=== PATIENT | male | born 1970 | race Caucasian/White ===

== ENCOUNTER 2017-01-22 15:18 | Emergency (ER) | payer OTHER | END 2017-01-22 16:36 | disposition home or self-care (01) | DX: H92.01 Otalgia, right ear (principal); J06.9 Acute upper respiratory infection, unspecified; I10 Essential (primary) hypertension; E11.9 Type 2 diabetes mellitus without complications; Z79.84 Long term (current) use of oral hypoglycemic drugs; K21.9 Gastro-esophageal reflux disease without esophagitis; Z79.82 Long term (current) use of aspirin ==

== ENCOUNTER 2017-03-14 11:39 | Day surgery (SDC) | payer OTHER ==
[2017-03-14] MEDS ORDERED: LACTATED RINGERS 1,000 ML IV ONE (12:18)
[2017-03-14] MEDS ORDERED: fentaNYL 100 MCG/2 ML VIAL IVP ONE (13:50)
[2017-03-14] MEDS ORDERED: MIDAZOLAM 2 MG/2 ML VIAL IVP ONE (13:50)
== END 2017-03-14 11:40 | disposition home or self-care (01) ==
PROC: 0DB68ZX Excision of Stomach, Via Natural or Artificial Opening Endoscopic, Diagnostic (ICD-10-PCS; principal; 2017-03-14 13:00)
DX: K21.9 Gastro-esophageal reflux disease without esophagitis (principal); K44.9 Diaphragmatic hernia without obstruction or gangrene; K29.70 Gastritis, unspecified, without bleeding; E11.9 Type 2 diabetes mellitus without complications; I10 Essential (primary) hypertension; E78.00 Pure hypercholesterolemia, unspecified; G47.30 Sleep apnea, unspecified; Z79.82 Long term (current) use of aspirin; Z79.84 Long term (current) use of oral hypoglycemic drugs
CPT/HCPCS: 43239; J7120

== ENCOUNTER 2017-05-12 15:58 | Emergency (ER) | payer OTHER ==
[2017-05-12] MEDS ORDERED: SODIUM CHLORIDE 0.9% 1,000 ML IV ONE (16:08)
[2017-05-12] MEDS ORDERED: ONDANSETRON 4 MG/2 ML VIAL IVP STA (16:08)
[2017-05-12] MEDS ORDERED: LOPERAMIDE 2 MG CAPSULE PO STA (16:08)
--- NOTE | 2017-05-12 16:11 | ED Physician Documentation ---
History of Present Illness - Stated complaint Stated Complaint: LIGHTHEADEDNESS,VOMITING - Chief complaint Chief Complaint: General - History obtained from History obtained from: Patient - History of Present Illness Timing: Yesterday (47-year-old gentleman with type 2 diabetes and hypertension developed an illness yesterday marked by sore throat and some sinus drainage but last night with vomiting and diarrhea without abdominal pain or fever. His was recently ill with a similar syndrome. There was no recent international travel, no rash. He is urinating a normal amount, but feels dizzy today.) Review of Systems Constitutional: denies: Fever, Chills, Fatigue Nose: reports: Rhinorrhea / runny nose Throat: reports: Sore throat GI: reports: Nausea, Vomiting, Diarrhea. denies: Abdominal Pain : denies: Dysuria, Frequency PD PAST MEDICAL HISTORY - Past Medical History Cardiovascular: Hypertension Respiratory: Sleep apnea, CPAP use Endocrine/Autoimmune: None, Type 2 diabetes GI: GERD : None HEENT: None Psych: None Musculoskeletal: Gout Derm: None - Past Surgical History Past Surgical History: Yes Ortho: ACL reconstruction - Present Medications Home Medications: Ambulatory Orders Medication Instructions Recorded Confirmed Lisinopril/Hydrochlorothiazide 1 mg PO DAILY 06/06/15 05/12/17 [Lisinopril-Hctz 20-25 mg Tab] Metformin HCl 1,000 mg PO DAILY 06/06/15 05/12/17 [place]-3 Fatty Acids [Fish Oil] 300 mg PO DAILY 06/06/15 05/12/17 Probenecid 500 mg PO DAILY 06/06/15 05/12/17 Sitagliptin Phosphate [Januvia] 50 mg PO DAILY 06/06/15 05/12/17 Esomeprazole [NexIUM] 40 mg PO DAILY 08/26/16 05/12/17 amLODIPine [Norvasc] 10 mg PO DAILY 08/26/16 05/12/17 Aspirin [Aspir-Low] 81 mg PO DAILY 01/22/17 05/12/17 Guaifenesin/Pseudoephedrne HCl 1 each PO BID PRN #20 tab.er.12h 05/12/17 [Mucinex D ER 600-60 mg Tablet] Loperamide [Imodium] 2 mg PO QID PRN #10 capsule 05/12/17 Ondansetron HCl [Zofran] 4 mg PO Q6H PRN #10 tablet 05/12/17 - Allergies Allergies/Adverse Reactions: Allergies Allergy/AdvReac Type Severity Reaction Status Date / Time No Known Drug Allergies Allergy Verified 02/04/16 15:09 - Social History Does the pt smoke?: No Smoking Status: Never smoker Does the pt drink ETOH?: No Does the pt have substance abuse?: No - Immunizations Immunizations are current?: Yes PD ED PE NORMAL - Vitals Vital signs reviewed: Yes - General General: Alert and oriented X 3, No acute distress - HEENT HEENT: Ears normal, Pharynx benign - Cardiac Cardiac: RRR, No murmur - Respiratory Respiratory: No respiratory distress, Clear bilaterally - Abdomen Abdomen: Normal bowel sounds, Soft, Non tender - Neuro Neuro: Alert and oriented X 3, Normal speech - Psych Psych: Normal mood, Normal affect Results - Vitals Vitals: Vital Signs - 24 hr 05/12/17 16:02 Temperature 35.7 C L Heart Rate 80 Respiratory 16 Rate Blood Pressure 131/84 H O2 Saturation 97 Oxygen O2 Source Room air - Labs Labs: Laboratory Tests 05/12/17 16:15 Sodium 137 Potassium 3.5 Chloride 98 L Carbon Dioxide 31 Anion Gap 8.0 BUN 13 Creatinine 0.9 Estimated GFR (MDRD) 90 Glucose 170 H Calcium 9.2 Total Bilirubin 0.7 AST 27 ALT 36 Alkaline Phosphatase 79 Total Protein 7.9 Albumin 4.2 Globulin 3.7 Albumin/Globulin Ratio 1.1 Lipase 20 L PD MEDICAL DECISION MAKING - ED course ED course: 47-year-old gentleman withDiabetes and hypertension presents with what sounds like gastroenteritis associated with some URI symptoms. His workup is unremarkable and he has a benign abdominal examination both on arrival and on 4: 47 PM with Improvement in his symptoms after Zofran and IV fluids. Departure - Departure Disposition: 01 Home, Self Care Clinical Impression: Gastroenteritis Condition: Good Record reviewed to determine appropriate education?: Yes Instructions: ED Gastroenteritis Viral Prescriptions: Loperamide [Imodium] 2 mg PO QID PRN #10 capsule PRN Reason: Diarrhea Guaifenesin/Pseudoephedrne HCl [Mucinex D ER 600-60 mg Tablet] 1 each PO BID PRN #20 tab.er.12h PRN Reason: congestion Ondansetron HCl [Zofran] 4 mg PO Q6H PRN #10 tablet PRN Reason: Nausea / Vomiting Comments: Symptoms should be gone within the next 12-24 hours, at least the diarrhea and the nausea. Return if worse or if not better in that timeframe.
[2017-05-12] MEDS ORDERED: ONDANSETRON 4 MG/2 ML VIAL ONE (16:15)
[2017-05-12] MEDS ORDERED: LOPERAMIDE 2 MG CAPSULE PO ONE (16:15)
[2017-05-12 16:39] LABS: ALBUMIN/GLOBULIN RATIO 1.1 (1.0-2.2); BILIRUBIN,TOTAL 0.7 mg/dL (0.2-1.0); CALCIUM 9.2 mg/dL (8.5-10.3); CREATININE 0.9 mg/dL (0.6-1.2); POTASSIUM 3.5 mmol/L (3.5-5.0); TOTAL PROTEIN 7.9 g/dL (6.7-8.2)
[2017-05-12 16:57] VITALS: BP 129/80
== END 2017-05-12 16:57 | disposition home or self-care (01) ==
LOC: ED 15:58
DX: K52.9 Noninfective gastroenteritis and colitis, unspecified (principal); E11.9 Type 2 diabetes mellitus without complications; I10 Essential (primary) hypertension; K21.9 Gastro-esophageal reflux disease without esophagitis; G47.30 Sleep apnea, unspecified; Z79.84 Long term (current) use of oral hypoglycemic drugs; Z79.82 Long term (current) use of aspirin
CPT/HCPCS: 36415; 80053; 83690; 96374; 99283; 99284; A9270

== ENCOUNTER 2017-11-17 13:53 | Outpatient (CLI) | payer OTHER ==
--- NOTE | 2017-11-17 17:54 | MRI Report ---
EXAM: LEFT KNEE MRI WITHOUT CONTRAST EXAM DATE: 11/17/2017 02:45 PM. CLINICAL HISTORY: Left knee pain and locking for one year. Arthritis. Medial-sided pain worse. COMPARISON: None. TECHNIQUE: Multiplanar, multisequence T1-weighted and fluid-sensitive sequences of the knee without c ontrast. Other: None. FINDINGS: Bones: There is subchondral edema in the medial aspect of the medial femoral and tibial condyle. Ther e are medial and lateral compartment osteophytes. Articular Cartilage: There is moderate thinning of the medial compartment hyaline cartilage. There is mild thinning of the lateral and patellofemoral compartment cartilage. Medial Meniscus: There is a radial tear of the posterior of the horn medial meniscus with moderate me dial extrusion and degenerative tearing of the body. Lateral Meniscus: The lateral meniscus is intact. Cruciate Ligaments: The anterior and posterior cruciate ligaments are intact. Collateral Ligaments: The medial collateral and lateral collateral ligamentous structures are intact. Tendons: The quadriceps, patellar, semimembranosus, and popliteus tendons are unremarkable. Musculature: No edema or fatty atrophy. Other: There is a moderate-sized joint effusion. There is a moderate-sized popliteal cyst which has l eaked into the calf. No loose bodies. The medial and lateral retinacula are intact. The subcutaneous tissues and fat pads are unremarkable. IMPRESSION: 1. Radial tear of the posterior horn of the medial meniscus with extrusion and degenerative tearing o f the body. 2. Moderate medial and patellofemoral osteoarthritis. 3. Moderate-sized joint effusion and popliteal cyst which has leaked into the calf. [facility] MUSCULOSKELETAL RADIOLOGY SECTION Referring Provider Line: [phone] SITE ID: [id number]
== END 2017-11-17 13:54 | disposition home or self-care (01) ==
LOC: DI 13:53
PROVIDERS: ATTEND Family Medicine
DX: S83.242A Other tear of medial meniscus, current injury, left knee, initial encounter (principal); M17.12 Unilateral primary osteoarthritis, left knee; M66.0 Rupture of popliteal cyst; M25.462 Effusion, left knee

== ENCOUNTER 2018-11-08 23:20 | Emergency (ER) | payer OTHER ==
--- NOTE | 2018-11-09 01:27 | ED Physician Documentation ---
PD HPI SKIN - Stated complaint Stated Complaint: BILAT ANKLE PX - Chief complaint Chief Complaint: General - History obtained from History obtained from: Patient - History of Present Illness Timing - onset: How many weeks ago (3-4) Timing - duration: Weeks (3-4) Timing - details: Gradual onset, Waxing and waning (He will improve while on steroids but then worsened again once off of them.) Location: RLE, LLE (dorsum ankle/foot) Quality / character: Painful, Discolored (red), Swelling Associated symptoms: Myalgias. No: Fever, N/V/D Similar symptoms before: Diagnosis (gout) Recently seen: Clinic, Emergency Dept Review of Systems Constitutional: denies: Fever, Chills, Myalgias Cardiac: denies: Chest pain / pressure Respiratory: denies: Dyspnea, Cough GI: denies: Nausea, Vomiting, Diarrhea Neurologic: reports: Numbness. denies: Generalized weakness, Focal weakness PD PAST MEDICAL HISTORY - Past Medical History Past Medical History: Yes Cardiovascular: Hypertension Respiratory: Sleep apnea, CPAP use Endocrine/Autoimmune: None, Type 2 diabetes GI: GERD : None HEENT: None Psych: None Musculoskeletal: Gout Derm: None - Past Surgical History Past Surgical History: Yes Ortho: ACL reconstruction - Present Medications Home Medications: Ambulatory Orders Medication Instructions Recorded Confirmed Lisinopril/Hydrochlorothiazide 1 mg PO DAILY 06/06/15 05/12/17 [Lisinopril-Hctz 20-25 mg Tab] Metformin HCl 1,000 mg PO DAILY 06/06/15 05/12/17 Probenecid 500 mg PO DAILY 06/06/15 05/12/17 Sitagliptin Phosphate [Januvia] 50 mg PO DAILY 06/06/15 05/12/17 amLODIPine [Norvasc] 10 mg PO DAILY 08/26/16 05/12/17 Atorvastatin [Lipitor] 0 mg 11/09/18 Colchicine 0.6 mg PO 11/09/18 Colchicine 0.6 mg PO TID #30 tablet 11/09/18 Dexamethasone [Decadron] 4 mg PO DAILY #10 tablet 11/09/18 Fexofenadine HCl 180 mg PO 11/09/18 Indomethacin 25 mg PO BID #30 capsule 11/09/18 Indomethacin [Indocin] 25 mg PO 11/09/18 Losartan [Cozaar] 50 mg PO DAILY 11/09/18 11/09/18 Pantoprazole [Protonix] 40 mg PO 11/09/18 Tramadol HCl 50 mg PO Q6H PRN #15 tablet 11/09/18 - Allergies Allergies/Adverse Reactions: Allergies Allergy/AdvReac Type Severity Reaction Status Date / Time morphine AdvReac Itching Verified 11/08/18 23:47 - Social History Does the pt smoke?: No Smoking Status: Never smoker Does the pt drink ETOH?: No Does the pt have substance abuse?: No - Immunizations Immunizations are current?: Yes - POLST Patient has POLST: No PD ED PE NORMAL - Vitals Vital signs reviewed: Yes - General General: Alert and oriented X 3, No acute distress, Well developed/nourished - Derm Derm: Normal color, Warm and dry - Extremities Extremities: Other (both ankles/feet with redness, tenderness, swelling dorsolaterally. Right great toe MTP alsow ith similar. ) - Neuro Neuro: Alert and oriented X 3, No motor deficit, Normal speech Results - Vitals Vitals: Oxygen O2 Source Room air PD MEDICAL DECISION MAKING - ED course Complexity details: reviewed old records, considered differential (He has had prolonged episode of gout in both ankles that will improve while on the steroids but then comes back right away. He is continuing his probenecid even during the exacerbation and so that may be prolonging the symptoms. He also has a very mild irritative rash on both lower legs and that is also a listed side effect of the probenecid so I would have him hold this for now until he is fully cleared of his flareup and is well done of the gout episode for a week or 2 and then he could resume the prophylactic medicines. I would suggest he go back to allopurinol and see her probenecid if he is potentially getting a rash from it.), d/w patient Departure - Departure Disposition: 01 Home, Self Care Clinical Impression: Exacerbation of gout Ankle pain Qualifiers: Chronicity: acute Laterality: bilateral Qualified Code(s): M25.571 - Pain in right ankle and joints of right foot Condition: Stable Record reviewed to determine appropriate education?: Yes Instructions: ED Arthritis Gout Follow-Up: EFREN WILLIAM [Primary Care Provider] - Prescriptions: Colchicine 0.6 mg PO TID #30 tablet Dexamethasone [Decadron] 4 mg PO DAILY #10 tablet Indomethacin 25 mg PO BID #30 capsule Tramadol HCl 50 mg PO Q6H PRN #15 tablet PRN Reason: Pain Comments: Continue continue indomethacin twice daily. Also continue the colchicine 2-3 times daily. Dexamethasone daily for inflammation (steroid medicine). Add Tylenol or tramadol if needed for pains. Follow-up with your primary care. I would suggest stopping the probenecid until you are fully out of the gout episode as it may potentially be prolonging the symptoms. It can cause rash or irritated skin at times too, so might be the rash you are having on the legs. Discharge Date/Time: 11/09/18 02:25
[2018-11-09] MEDS ORDERED: NAPROXEN 250 MG TABLET PO STA (01:52)
[2018-11-09] MEDS ORDERED: HYDROcod/ACET 5/325 Prepack 4 PO STA (01:52)
[2018-11-09] MEDS ORDERED: DEXAMETHASONE 10 MG/ML VIAL PO STA (01:52)
[2018-11-09] MEDS ORDERED: CHERRY SYRUP 10 ML UDC PO ONE (01:58)
[2018-11-09 02:13] VITALS: BP 152/100
== END 2018-11-09 02:25 | disposition home or self-care (01) ==
LOC: ED 23:20
DX: M10.9 Gout, unspecified (principal); M25.571 Pain in right ankle and joints of right foot; M25.572 Pain in left ankle and joints of left foot; I10 Essential (primary) hypertension; E11.9 Type 2 diabetes mellitus without complications; Z79.84 Long term (current) use of oral hypoglycemic drugs
CPT/HCPCS: 99283; A9270

== ENCOUNTER 2019-03-02 17:03 | Emergency (ER) | payer OTHER ==
[2019-03-02 17:09] VITALS: BP 134/94
--- NOTE | 2019-03-02 17:22 | ED Physician Documentation ---
PD HPI URI - Stated complaint Stated Complaint: COUGH - Chief complaint Chief Complaint: Resp - History obtained from History obtained from: Patient - History of Present Illness Timing - onset: How many weeks ago (2) Timing duration: Weeks (2) Timing details: Gradual onset Pain level max: 3 Pain level now: 2 Associated symptoms: Fever, Chills Contributing factors: Sick contact. No: Immunocompromised, Unimmunized Improves by: Rest, MDI/nebulizer Worsened by: Activity, Breathing Recently seen: Clinic (for same, flonase and albuterol not helping. feels worse) Review of Systems Constitutional: denies: Fever, Chills GI: denies: Vomiting Skin: denies: Rash Musculoskeletal: denies: Neck pain, Back pain Neurologic: denies: Headache PD PAST MEDICAL HISTORY - Past Medical History Cardiovascular: Hypertension Respiratory: Sleep apnea, CPAP use Endocrine/Autoimmune: None, Type 2 diabetes GI: GERD : None HEENT: None Psych: None Musculoskeletal: Gout Derm: None - Past Surgical History Past Surgical History: Yes Ortho: ACL reconstruction - Present Medications Home Medications: Ambulatory Orders Medication Instructions Recorded Confirmed Lisinopril/Hydrochlorothiazide 1 mg PO DAILY 06/06/15 05/12/17 [Lisinopril-Hctz 20-25 mg Tab] Metformin HCl 1,000 mg PO DAILY 06/06/15 05/12/17 Probenecid 500 mg PO DAILY 06/06/15 05/12/17 Sitagliptin Phosphate [Januvia] 50 mg PO DAILY 06/06/15 05/12/17 amLODIPine [Norvasc] 10 mg PO DAILY 08/26/16 05/12/17 Atorvastatin [Lipitor] 0 mg 11/09/18 Colchicine 0.6 mg PO 11/09/18 Colchicine 0.6 mg PO TID #30 tablet 11/09/18 Dexamethasone [Decadron] 4 mg PO DAILY #10 tablet 11/09/18 Fexofenadine HCl 180 mg PO 11/09/18 Indomethacin 25 mg PO BID #30 capsule 11/09/18 Indomethacin [Indocin] 25 mg PO 11/09/18 Losartan [Cozaar] 50 mg PO DAILY 11/09/18 11/09/18 Pantoprazole [Protonix] 40 mg PO 11/09/18 Tramadol HCl 50 mg PO Q6H PRN #15 tablet 11/09/18 Cetirizine HCl/Pseudoephedrine 1 each PO BID PRN #30 tab.er.12h 03/02/19 [Zyrtec-D Tablet] Doxycycline Hyclate 100 mg PO BID #20 capsule 03/02/19 - Allergies Allergies/Adverse Reactions: Allergies Allergy/AdvReac Type Severity Reaction Status Date / Time morphine AdvReac Itching Verified 03/02/19 17:09 - Social History Does the pt smoke?: No Smoking Status: Never smoker Does the pt drink ETOH?: No Does the pt have substance abuse?: No - Immunizations Immunizations are current?: Yes - POLST Patient has POLST: No PD ED PE NORMAL - Vitals Vital signs reviewed: Yes - General General: Alert and oriented X 3, No acute distress - HEENT HEENT: Ears normal, Moist mucous membranes, Pharynx benign - Neck Neck: Supple, no meningeal sign - Cardiac Cardiac: RRR - Respiratory Respiratory: No respiratory distress, Other (Rhonchi left lower lobe that does not clear with coughing) - Abdomen Abdomen: Soft, Non tender, Non distended - Derm Derm: Warm and dry - Neuro Neuro: Alert and oriented X 3 Results - Vitals Vitals: Vital Signs - 24 hr 03/02/19 17:07 Temperature 36.4 C L Heart Rate 91 Respiratory 18 Rate Blood Pressure 134/94 H O2 Saturation 96 Oxygen O2 Source Room air PD MEDICAL DECISION MAKING - ED course Complexity details: considered differential, d/w patient ED course: 49-year-old male with what appears to be normal clinically. Will place on antibiotics. We will have him follow-up with his doctor for further care. Also placed on decongestants. He has albuterol at home. He does request a breathing treatment here. Patient counseled regarding signs and symptoms for which I believe and urgent re-evaluation would be necessary. Patient with good understanding of and agreement to plan and is comfortable going home at this time This document was made in part using voice recognition software. While efforts are made to proofread this document, sound alike and grammatical errors may occur. Departure - Departure Disposition: 01 Home, Self Care Clinical Impression: Pneumonia Qualifiers: Pneumonia type: due to unspecified organism Laterality: left Lung location: lower lobe of lung Qualified Code(s): J18.1 - Lobar pneumonia, unspecified organism Condition: Good Instructions: ED Pneumonia Adult Follow-Up: SONE,PETER [Primary Care Provider] - Within 1 week Prescriptions: Cetirizine HCl/Pseudoephedrine [Zyrtec-D Tablet] 1 each PO BID PRN #30 tab.er.12h PRN Reason: nasal congestion Doxycycline Hyclate 100 mg PO BID #20 capsule Comments: Use the medications as prescribed. Return if you worsen. Follow-up with your doctor for further care. Take all antibiotics until gone. Forms: Activity restrictions
[2019-03-02] MEDS ORDERED: ALBUTEROL NEB 2.5 MG/3 ML INH STA (17:27)
[2019-03-02] MEDS ORDERED: DOXYCYCLINE 100 MG TABLET PO STA (17:27)
[2019-03-02] MEDS ORDERED: BENZONATATE 100 MG CAPSULE PO STA (17:27)
== END 2019-03-02 17:52 | disposition home or self-care (01) ==
LOC: ED 17:03
DX: J18.1 Lobar pneumonia, unspecified organism (principal); E11.9 Type 2 diabetes mellitus without complications; I10 Essential (primary) hypertension
CPT/HCPCS: 94640; 99283; 99284; A9270

== ENCOUNTER 2019-03-05 13:46 | Emergency (ER) | payer OTHER ==
[2019-03-05] MEDS ORDERED: IPRATROPIUM/ALBUTEROL 3 ML NEB INH STA (14:12)
[2019-03-05] MEDS ORDERED: predniSONE 20 MG TABLET PO STA (14:13)
--- NOTE | 2019-03-05 14:16 | ED Physician Documentation ---
PD HPI URI - Stated complaint Stated Complaint: DIFFICULTY BREATHING/COUGH - Chief complaint Chief Complaint: Resp - History obtained from History obtained from: Patient, Family - History of Present Illness Timing - onset: How many days ago (Several) Pain level max: 3 Pain level now: 2 Associated symptoms: Fever, Nasal congestion, Rhinorrhea, Dry cough, Dyspnea Contributing factors: COPD / asthma Improves by: Rest, MDI/nebulizer Worsened by: Activity, Breathing Recently seen: Emergency Dept (3 days ago for same) - Additional information Additional information: Patient seen here recently with difficulty breathing, diagnosed with pneumonia. Placed on doxycycline. He states that it is getting difficult to breathe again. Is not currently on steroids. Review of Systems GI: denies: Vomiting Skin: denies: Rash Musculoskeletal: denies: Neck pain, Back pain Neurologic: denies: Headache PD PAST MEDICAL HISTORY - Past Medical History Cardiovascular: Hypertension Respiratory: Sleep apnea, CPAP use Endocrine/Autoimmune: None, Type 2 diabetes GI: GERD : None HEENT: None Psych: None Musculoskeletal: Gout Derm: None - Past Surgical History Past Surgical History: Yes Ortho: ACL reconstruction - Present Medications Home Medications: Ambulatory Orders Medication Instructions Recorded Confirmed Lisinopril/Hydrochlorothiazide 1 mg PO DAILY 06/06/15 05/12/17 [Lisinopril-Hctz 20-25 mg Tab] Metformin HCl 1,000 mg PO DAILY 06/06/15 05/12/17 Probenecid 500 mg PO DAILY 06/06/15 05/12/17 Sitagliptin Phosphate [Januvia] 50 mg PO DAILY 06/06/15 05/12/17 amLODIPine [Norvasc] 10 mg PO DAILY 08/26/16 05/12/17 Atorvastatin [Lipitor] 0 mg 11/09/18 Colchicine 0.6 mg PO 11/09/18 Colchicine 0.6 mg PO TID #30 tablet 11/09/18 Dexamethasone [Decadron] 4 mg PO DAILY #10 tablet 11/09/18 Fexofenadine HCl 180 mg PO 11/09/18 Indomethacin 25 mg PO BID #30 capsule 11/09/18 Indomethacin [Indocin] 25 mg PO 11/09/18 Losartan [Cozaar] 50 mg PO DAILY 11/09/18 11/09/18 Pantoprazole [Protonix] 40 mg PO 11/09/18 Tramadol HCl 50 mg PO Q6H PRN #15 tablet 11/09/18 Cetirizine HCl/Pseudoephedrine 1 each PO BID PRN #30 tab.er.12h 03/02/19 [Zyrtec-D Tablet] Doxycycline Hyclate 100 mg PO BID #20 capsule 03/02/19 Albuterol Sulf [Ventolin Hfa 1 - 2 puffs INH Q4HR PRN #1 inhaler 03/05/19 Inhaler] predniSONE [Prednisone] 40 mg PO DAILY #10 tablet 03/05/19 - Allergies Allergies/Adverse Reactions: Allergies Allergy/AdvReac Type Severity Reaction Status Date / Time morphine AdvReac Itching Verified 03/05/19 14:00 - Social History Does the pt smoke?: No Smoking Status: Never smoker Does the pt drink ETOH?: No Does the pt have substance abuse?: No - Immunizations Immunizations are current?: Yes - POLST Patient has POLST: No PD ED PE NORMAL - Vitals Vital signs reviewed: Yes - General General: Alert and oriented X 3, No acute distress, Well developed/nourished - HEENT HEENT: PERRL, Moist mucous membranes - Neck Neck: Supple, no meningeal sign - Cardiac Cardiac: RRR - Respiratory Respiratory: No respiratory distress, Other (Wheezing diminished breath sounds bilaterally) - Abdomen Abdomen: Soft, Non tender, Non distended - Derm Derm: Warm and dry - Extremities Extremities: No edema - Neuro Neuro: Alert and oriented X 3 - Psych Psych: Normal mood, Normal affect Results - Vitals Vitals: Vital Signs - 24 hr 03/05/19 03/05/19 03/05/19 13:57 14:28 15:06 Temperature 36.9 C 36.5 C Heart Rate 93 88 80 Respiratory 20 18 18 Rate Blood Pressure 140/95 H 134/103 H O2 Saturation 97 96 Oxygen O2 Source Room air PD MEDICAL DECISION MAKING - ED course Complexity details: reviewed old records, re-evaluated patient, considered differential, d/w patient ED course: Patient feels better after steroids and nebulizer treatment. No hypoxia or respiratory distress. Improved aeration throughout his lungs. Will prescribe steroids and an inhaler for home in addition to his antibiotics. Patient counseled regarding signs and symptoms for which I believe and urgent re- evaluation would be necessary. Patient with good understanding of and agreement to plan and is comfortable going home at this time This document was made in part using voice recognition software. While efforts are made to proofread this document, sound alike and grammatical errors may occur. Departure - Departure Disposition: 01 Home, Self Care Clinical Impression: Pneumonia Qualifiers: Pneumonia type: due to unspecified organism Laterality: unspecified laterality Lung location: unspecified part of lung Qualified Code(s): J18.9 - Pneumonia, unspecified organism Condition: Good Instructions: ED Pneumonia Adult Follow-Up: EFREN WILLIAM [Primary Care Provider] - Within 1 week Prescriptions: Albuterol Sulf [Ventolin Hfa Inhaler] 1 - 2 puffs INH Q4HR PRN #1 inhaler PRN Reason: Shortness Of Air/Wheezing predniSONE [Prednisone] 40 mg PO DAILY #10 tablet Comments: Continue the medications as previously prescribed. Return if you worsen. Forms: Activity restrictions Discharge Date/Time: 03/05/19 15:16
[2019-03-05 15:07] VITALS: BP 134/103
== END 2019-03-05 15:16 | disposition home or self-care (01) ==
LOC: ED 13:46
DX: J18.9 Pneumonia, unspecified organism (principal); I10 Essential (primary) hypertension; E11.9 Type 2 diabetes mellitus without complications; Z79.84 Long term (current) use of oral hypoglycemic drugs
CPT/HCPCS: 94640; 99283; 99284; J7512

== ENCOUNTER 2019-12-28 17:06 | Emergency (ER) | payer OTHER ==
[2019-12-28] MEDS ORDERED: IPRATROPIUM/ALBUTEROL 3 ML NEB INH STA (17:26)
[2019-12-28] MEDS ORDERED: PSEUDOEPHEDRINE 30 MG TABLET PO STA (17:26)
--- NOTE | 2019-12-28 17:28 | ED Physician Documentation ---
History of Present Illness - Stated complaint Stated Complaint: NAUSEA/CONGESTION - Chief complaint Chief Complaint: General - History obtained from History obtained from: Patient - History of Present Illness Timing: How many days ago (3) Pain level max: 0 Pain level now: 0 - Additonal information Additional information: 49-year-old male states that he has had nasal congestion, cough and chills for the past 3 days. Had pneumonia last year. Nothing makes it better or worse. He states he is getting on an airplane on Sunday and wants to be better by then. States he has mild tightness in his chest when he coughs. Used an inhaler last year, currently is not using 1. Several people at work are sick with same. Review of Systems Constitutional: reports: Chills Ears: denies: Ear pain Nose: reports: Rhinorrhea / runny nose, Congestion Throat: denies: Sore throat Cardiac: denies: Chest pain / pressure Respiratory: reports: Dyspnea, Cough GI: denies: Nausea, Vomiting Skin: denies: Rash Musculoskeletal: denies: Neck pain, Back pain Neurologic: denies: Headache PD PAST MEDICAL HISTORY - Past Medical History Cardiovascular: Hypertension Respiratory: Sleep apnea, CPAP use Endocrine/Autoimmune: None, Type 2 diabetes GI: GERD : None HEENT: None Psych: None Musculoskeletal: Gout Derm: None - Past Surgical History Past Surgical History: Yes Ortho: ACL reconstruction - Present Medications Home Medications: Ambulatory Orders Medication Instructions Recorded Confirmed Lisinopril/Hydrochlorothiazide 1 mg PO DAILY 06/06/15 05/12/17 [Lisinopril-Hctz 20-25 mg Tab] Metformin HCl 1,000 mg PO DAILY 06/06/15 05/12/17 Probenecid 500 mg PO DAILY 06/06/15 05/12/17 Sitagliptin Phosphate [Januvia] 50 mg PO DAILY 06/06/15 05/12/17 amLODIPine [Norvasc] 10 mg PO DAILY 08/26/16 05/12/17 Atorvastatin [Lipitor] 0 mg 11/09/18 Colchicine 0.6 mg PO 11/09/18 Colchicine 0.6 mg PO TID #30 tablet 11/09/18 Fexofenadine HCl 180 mg PO 11/09/18 Indomethacin 25 mg PO BID #30 capsule 11/09/18 Indomethacin [Indocin] 25 mg PO 11/09/18 Losartan [Cozaar] 50 mg PO DAILY 11/09/18 11/09/18 Pantoprazole [Protonix] 40 mg PO 11/09/18 Tramadol HCl 50 mg PO Q6H PRN #15 tablet 11/09/18 dexAMETHasone [Decadron] 4 mg PO DAILY #10 tablet 11/09/18 Cetirizine HCl/Pseudoephedrine 1 each PO BID PRN #30 tab.er.12h 03/02/19 [Zyrtec-D Tablet] Doxycycline Hyclate 100 mg PO BID #20 capsule 03/02/19 Albuterol Sulf [Ventolin Hfa 1 - 2 puffs INH Q4HR PRN #1 inhaler 03/05/19 Inhaler] predniSONE [Prednisone] 40 mg PO DAILY #10 tablet 03/05/19 Albuterol Sulfate [Proair Hfa 1 - 2 puffs INH Q4H PRN #1 inhaler 12/28/19 Inhaler] Cetirizine HCl/Pseudoephedrine 1 each PO BID PRN #30 tab.er.12h 12/28/19 [Zyrtec-D Tablet] predniSONE [Deltasone] 10 mg PO [id number] #42 tab 12/28/19 - Allergies Allergies/Adverse Reactions: Allergies Allergy/AdvReac Type Severity Reaction Status Date / Time morphine AdvReac Itching Verified 12/28/19 17:10 - Social History Does the pt smoke?: No Smoking Status: Never smoker Does the pt drink ETOH?: No Does the pt have substance abuse?: No - Immunizations Immunizations are current?: Yes - POLST Patient has POLST: No PD ED PE NORMAL - Vitals Vital signs reviewed: Yes - General General: Alert and oriented X 3, No acute distress, Well developed/nourished - HEENT HEENT: Ears normal, Moist mucous membranes, Pharynx benign, Other (No sinus tenderness) - Neck Neck: Supple, no meningeal sign, No adenopathy - Cardiac Cardiac: RRR - Respiratory Respiratory: No respiratory distress, Clear bilaterally (Diminished breath sounds bilaterally, but clear) - Abdomen Abdomen: Soft, Non tender, Non distended - Derm Derm: Warm and dry, No rash - Extremities Extremities: No edema - Neuro Neuro: Alert and oriented X 3 - Psych Psych: Normal mood, Normal affect Results - Vitals Vitals: Vital Signs - 24 hr 12/28/19 12/28/19 12/28/19 17:11 17:38 18:19 Temperature 36.4 C L Heart Rate 79 81 84 Respiratory 18 16 16 Rate Blood Pressure 152/92 H 145/98 H O2 Saturation 97 98 Oxygen O2 Source Room air - Rads (name of study) Chest x-ray Radiology: Prelim report reviewed, EMP read contemporaneously, See rad report (No acute cardiopulmonary disease) PD MEDICAL DECISION MAKING - ED course Complexity details: reviewed results, re-evaluated patient, considered differential, d/w patient ED course: 49-year-old male with what appears to be a viral upper respiratory infection. He feels better after nebulizer treatment. Will place on inhalers and steroids for home. Also placed on decongestants. No pneumonia on chest x-ray. No hypoxia. Patient counseled regarding signs and symptoms for which I believe and urgent re-evaluation would be necessary. Patient with good understanding of and agreement to plan and is comfortable going home at this time This document was made in part using voice recognition software. While efforts are made to proofread this document, sound alike and grammatical errors may occur. Departure - Departure Disposition: Home, Self Care Clinical Impression: Viral URI with cough Condition: Good Instructions: ED URI Viral Follow-Up: your,doctor in 1 week if not better [Other] Prescriptions: Albuterol Sulfate [Proair Hfa Inhaler] 1 - 2 puffs INH Q4H PRN #1 inhaler PRN Reason: Shortness Of Air/Wheezing Cetirizine HCl/Pseudoephedrine [Zyrtec-D Tablet] 1 each PO BID PRN #30 tab.er.12h PRN Reason: nasal congestion predniSONE [Deltasone] 10 mg PO [id number] #42 tab Comments: Use the medications as prescribed. Follow-up with your doctor for further care. There is no evidence of pneumonia on your chest x-ray today. The cough will likely last approximately 2 weeks. Discharge Date/Time: 12/28/19 18:19
[2019-12-28] MEDS ORDERED: predniSONE 20 MG TABLET PO STA (17:43)
--- NOTE | 2019-12-28 18:06 | XRAY Report ---
Reason: cough Procedure Date: 12/28/2019 Accession Number: [id number] / [id number] Procedure: XR - Chest 2 View X-Ray CPT Code: 02577 Final Report FULL RESULT: EXAM: CHEST RADIOGRAPHY EXAM DATE: 12/28/2019 05:36 PM. CLINICAL HISTORY: Cough, shortness of breath, and chest tightness. COMPARISON: None. TECHNIQUE: 2 views. FINDINGS: Lungs/Pleura: Normal volumes. No focal infiltrate or bronchial wall thickening. No evidence of edema. No pleural effusion or pneumothorax. Mediastinum: Normal cardiomediastinal contour. Other: Mild degenerative changes in the mid thoracic spine. IMPRESSION: No acute cardiopulmonary abnormality. RADIA
[2019-12-28 18:20] VITALS: BP 145/98
== END 2019-12-28 18:19 | disposition home or self-care (01) ==
LOC: ED 17:06
DX: J06.9 Acute upper respiratory infection, unspecified (principal); I10 Essential (primary) hypertension; E11.9 Type 2 diabetes mellitus without complications; Z79.84 Long term (current) use of oral hypoglycemic drugs
CPT/HCPCS: 71046; 94640; 99283; 99284; A9270; J7512

== ENCOUNTER 2020-03-09 08:47 | Emergency (ER) | payer OTHER ==
--- NOTE | 2020-03-09 09:17 | ED Physician Documentation ---
PD HPI NVD - Stated complaint Stated Complaint: FEVER/VOMITING - Chief complaint Chief Complaint: Fever - History obtained from History obtained from: Patient - History of Present Illness Timing - onset: Last night. No: Yesterday (felt okay yesterday, with onset of fever, aches, sore throat, nausea vomiting diarrhea overnight. Temp to 102 at home. Denies cough/dyspnea.) Timing - duration: Hours (10-12 hours) Timing - details: Abrupt onset Associated symptoms: Fever, Dizzy (lightheaded this morning), Loss of appetite. No: Abdominal pain, Chest pain, Hematemesis Contributing factors: No: Sick contact, Bad food, Travel Improved by: No: Vomiting Worsened by: Eating Similar symptoms before: Has not had sx before Recently seen: Not recently seen Review of Systems Constitutional: reports: Fever, Chills, Myalgias (abrupt overnight), Fatigue Nose: denies: Rhinorrhea / runny nose, Congestion Throat: reports: Sore throat Cardiac: denies: Chest pain / pressure Respiratory: denies: Dyspnea, Cough GI: reports: Nausea, Vomiting, Diarrhea. denies: Abdominal Swelling, Constipation, Hematemesis, Bloody / black stool : denies: Dysuria, Frequency Neurologic: reports: Generalized weakness. denies: Near syncope, Altered mental status, Headache PD PAST MEDICAL HISTORY - Past Medical History Cardiovascular: Hypertension Respiratory: Sleep apnea, CPAP use Endocrine/Autoimmune: None, Type 2 diabetes GI: GERD : None HEENT: None Psych: None Musculoskeletal: Gout Derm: None - Past Surgical History Past Surgical History: Yes Ortho: ACL reconstruction - Present Medications Home Medications: Ambulatory Orders Medication Instructions Recorded Confirmed Lisinopril/Hydrochlorothiazide 1 mg PO DAILY 06/06/15 05/12/17 [Lisinopril-Hctz 20-25 mg Tab] Metformin HCl 1,000 mg PO DAILY 06/06/15 05/12/17 Probenecid 500 mg PO DAILY 06/06/15 05/12/17 Sitagliptin Phosphate [Januvia] 50 mg PO DAILY 06/06/15 05/12/17 amLODIPine [Norvasc] 10 mg PO DAILY 08/26/16 05/12/17 Atorvastatin [Lipitor] 0 mg 11/09/18 Colchicine 0.6 mg PO 11/09/18 Colchicine 0.6 mg PO TID #30 tablet 11/09/18 Fexofenadine HCl 180 mg PO 11/09/18 Indomethacin 25 mg PO BID #30 capsule 11/09/18 Indomethacin [Indocin] 25 mg PO 11/09/18 Losartan [Cozaar] 50 mg PO DAILY 11/09/18 11/09/18 Pantoprazole [Protonix] 40 mg PO 11/09/18 Tramadol HCl 50 mg PO Q6H PRN #15 tablet 11/09/18 dexAMETHasone [Decadron] 4 mg PO DAILY #10 tablet 11/09/18 Cetirizine HCl/Pseudoephedrine 1 each PO BID PRN #30 tab.er.12h 03/02/19 [Zyrtec-D Tablet] Doxycycline Hyclate 100 mg PO BID #20 capsule 03/02/19 Albuterol Sulf [Ventolin Hfa 1 - 2 puffs INH Q4HR PRN #1 inhaler 03/05/19 Inhaler] predniSONE [Prednisone] 40 mg PO DAILY #10 tablet 03/05/19 Albuterol Sulfate [Proair Hfa 1 - 2 puffs INH Q4H PRN #1 inhaler 12/28/19 Inhaler] Cetirizine HCl/Pseudoephedrine 1 each PO BID PRN #30 tab.er.12h 12/28/19 [Zyrtec-D Tablet] predniSONE [Deltasone] 10 mg PO [id number] #42 tab 12/28/19 Calcium Carbonate 260 mg PO DAILY #10 tablet 03/09/20 Ondansetron Odt [Zofran] 4 mg TL Q6H PRN #15 tablet 03/09/20 Potassium Chloride 10 meq PO DAILY #5 tablet.er 03/09/20 - Allergies Allergies/Adverse Reactions: Allergies Allergy/AdvReac Type Severity Reaction Status Date / Time morphine AdvReac Itching Verified 03/09/20 08:52 - Social History Does the pt smoke?: No Smoking Status: Never smoker Does the pt drink ETOH?: No Does the pt have substance abuse?: No - Immunizations Immunizations are current?: Yes - POLST Patient has POLST: No PD ED PE NORMAL - Vitals Vital signs reviewed: Yes - General General: Alert and oriented X 3, No acute distress, Well developed/nourished - HEENT HEENT: Ears normal, Pharynx benign. No: Moist mucous membranes - Neck Neck: Supple, no meningeal sign, No adenopathy - Cardiac Cardiac: RRR, No murmur - Respiratory Respiratory: Clear bilaterally - Abdomen Abdomen: Normal bowel sounds, Soft, Non tender, Non distended, No organomegaly - Male Male : Deferred - Rectal Rectal: Deferred - Back Back: No CVA TTP - Derm Derm: Warm and dry. No: Normal color (mild pallor) - Extremities Extremities: No deformity, No tenderness to palpate, No edema, No calf tenderness / cord - Neuro Neuro: Alert and oriented X 3, No motor deficit, Normal speech Results - Vitals Vitals: Oxygen O2 Source Room air - Labs Labs: Laboratory Tests 03/09/20 03/09/20 03/09/20 09:20 09:20 09:50 WBC 7.4 RBC 4.83 Hgb 13.5 L Hct 40.0 L MCV 82.8 MCH 28.0 MCHC 33.8 RDW 14.1 Plt Count 202 MPV 11.1 Neut # (Auto) 5.9 Lymph # (Auto) 0.8 L [place] # (Auto) 0.6 Eos # (Auto) 0.0 Baso # (Auto) 0.0 Absolute Nucleated RBC 0.00 Nucleated RBC % 0.0 Sodium 138 Potassium 2.7 L Chloride 109 Carbon Dioxide 21 Anion Gap 8.0 BUN 11 Creatinine 0.6 Estimated GFR (MDRD) 143 Glucose 130 H Calcium 6.6 L Magnesium 1.1 L Total Bilirubin 0.4 AST 19 ALT 21 Alkaline Phosphatase 35 L Total Protein 5.4 L Albumin 3.1 L Globulin 2.3 Albumin/Globulin Ratio 1.3 Lipase 21 L Coronavirus (PCR) NEGATIVE PD MEDICAL DECISION MAKING - ED course Complexity details: re-evaluated patient (feeling improved with fluids and meds. abd exam still benign. Lytes are depleted, so given IV replacement on Ca, K. ), considered differential (GI symptoms with reported fever last night. No resp symptoms. Abd not tender on exam. CXR clear without signs of pneumonia. ), d/w patient Departure - Departure Disposition: 01 Home, Self Care Clinical Impression: Nausea and vomiting in adult, Viral gastroenteritis Condition: Stable Record reviewed to determine appropriate education?: Yes Instructions: ED Gastroenteritis Viral Follow-Up: SOLOMON Byrnes [Provider Group] Prescriptions: Calcium Carbonate 260 mg PO DAILY #10 tablet Ondansetron Odt [Zofran] 4 mg TL Q6H PRN #15 tablet PRN Reason: Nausea / Vomiting Potassium Chloride 10 meq PO DAILY #5 tablet.er Comments: Given the abrupt nausea and vomiting associated with fever and benign abdominal exam, I had inclined to think this is a viral gastroenteritis. Most likely this will just last for a day or 2 and then improve. Use ondansetron if needed for nausea. Rest at home today and tomorrow. Use Tylenol if needed for fevers. Your electrolytes had shown depletion particularly of the potassium and calcium but also a little bit of the magnesium presumably related to the vomiting. These should correct as your diet improves but I would suggest supplementing the potassium and calcium for several days to replenish them. This would be an unlikely presentation of coronavirus (COVID) so I do not think that is the cause of your illness. We did do a swab test for it and it should result in 1 or 2 days; we will call you with the results. Off work in the meantime. Forms: Activity restrictions Discharge Date/Time: 03/09/20 12:26
[2020-03-09 09:49] LABS: BASOPHILS % (AUTO) 0.4 %; EOSINOPHILS % (AUTO) 0.5 %; HGB - HEMOGLOBIN 13.5 g/dL (14.0-18.0); LYMPHOCYTES # (AUTO) 0.8 10^3/uL (1.5-3.5); LYMPHOCYTES % (AUTO) 10.7 %; MEAN CORPUSCULAR HGB CONC 33.8 g/dL (32.0-36.0); MEAN CORPUSCULAR VOLUME 82.8 fL (80.0-94.0); MEAN PLATELET VOLUME 11.1 fL (7.4-11.4); MONOCYTES # (AUTO) 0.6 10^3/uL (0.0-1.0); MONOCYTES % (AUTO) 8.5 %; NEUTROPHILS # (AUTO) 5.9 10^3/uL (1.5-6.6); NEUTROPHILS % (AUTO) 79.6 %; PLT - PLATELET COUNT 202 10^3/uL (130-450); RED BLOOD COUNT 4.83 10^6/uL (4.70-6.10); RED CELL DISTRIBUTION WIDTH 14.1 % (12.0-15.0); WHITE BLOOD COUNT 7.4 x10^3/uL (4.8-10.8)
[2020-03-09 10:05] LABS: ALBUMIN 3.1 g/dL (3.2-5.5); ALBUMIN/GLOBULIN RATIO 1.3 (1.0-2.2); BILIRUBIN,TOTAL 0.4 mg/dL (0.2-1.0); CALCIUM 6.6 mg/dL (8.5-10.3); CREATININE 0.6 mg/dL (0.6-1.2); MAGNESIUM 1.1 mg/dL (1.7-2.8); TOTAL PROTEIN 5.4 g/dL (6.7-8.2)
[2020-03-09] MEDS: ONDANSETRON 4 MG/2 ML VIAL IVP STA (10:05)
[2020-03-09] MEDS: SODIUM CHLORIDE 0.9% 1,000 ML IV ONE (10:05)
[2020-03-09] MEDS: FAMOTIDINE 20 MG/2 ML SYRINGE IVP STA (10:05)
[2020-03-09] MEDS: KETOROLAC 30 MG/ML VIAL IVP STA (10:05)
--- NOTE | 2020-03-09 10:21 | XRAY Report ---
Reason: chest pain Procedure Date: 03/09/2020 Accession Number: [id number] / [id number] Procedure: XR - Chest 1 View X-Ray CPT Code: 65920 Final Report FULL RESULT: EXAM: CHEST RADIOGRAPHY EXAM DATE: 03/09/2020 10:10 AM. CLINICAL HISTORY: Chest pain. COMPARISON: CHEST 2 VIEW 12/28/2019 5:31 PM. TECHNIQUE: 1 view. FINDINGS: Lungs/Pleura: No focal opacities evident. No pleural effusion. No pneumothorax. Mediastinum: Within exam limitations, the cardiomediastinal contour is normal. Other: None. IMPRESSION: No acute intrathoracic plain film abnormality. RADIA
[2020-03-09] MEDS: CALCIUM GLUCONATE 1,000 MG in SODIUM CHLORIDE 0.9% 50 ML IV STA (10:39)
[2020-03-09] MEDS: POTASSIUM CHLOR 10 MEQ/100 ML 10 MEQ/100 ML BAG IV ONE (10:39)
[2020-03-09 12:26] VITALS: BP 132/75
== END 2020-03-09 12:26 | disposition home or self-care (01) ==
LOC: ED 08:47
DX: A08.4 Viral intestinal infection, unspecified (principal); E87.6 Hypokalemia; E83.42 Hypomagnesemia; E83.51 Hypocalcemia; I10 Essential (primary) hypertension; E11.9 Type 2 diabetes mellitus without complications
CPT/HCPCS: 36415; 71045; 80053; 81599; 83690; 83735; 85025; 96361; 96365; 96368; 96375; 99284

== ENCOUNTER 2020-08-31 11:05 | Emergency (ER) | payer OTHER ==
[2020-08-31] MEDS ORDERED: KETOROLAC 60 MG/2 ML VIAL IM STA (12:03)
--- NOTE | 2020-08-31 12:07 | ED Physician Documentation ---
History of Present Illness - Stated complaint Stated Complaint: STIFF NECK/BACK PX - Chief complaint Chief Complaint: Back Pain - Additonal information Additional information: 50-year-old diabetic male presents to the emergency department for reported neck and back pain. He thinks that he may have thrown his back out but does not have any inciting events. About 4 days ago he did chop wood and yesterday he worked on his motorcycle but did not have any known falls or trauma. Yesterday in the a.m. he woke up and he felt like he had a pinched nerve in his back. Pain radiates to the left arm and he feels like his arm is been weak. He has had no fevers chest pain, shortness of breath. He has no previous history of cervical radiculopathy neck or arm pain. He does endorse poorly controlled blood pressures. Denies tobacco use. Moderate social drinker. Review of Systems Constitutional: denies: Fever, Chills, Fatigue, Weight Loss Ears: reports: Reviewed and negative Nose: reports: Reviewed and negative Throat: reports: Reviewed and negative Cardiac: reports: Reviewed and negative Respiratory: denies: Dyspnea, Cough, Hemoptysis, Wheezing GI: reports: Abdominal Pain, Abdominal Swelling : reports: Reviewed and negative Skin: reports: Reviewed and negative Musculoskeletal: reports: Neck pain, Back pain Neurologic: denies: Generalized weakness, Focal weakness, Numbness, Difficulty speaking, Near syncope, Syncope, Seizure, Headache, Head injury, LOC Psychiatric: reports: Reviewed and negative PD PAST MEDICAL HISTORY - Past Medical History Cardiovascular: Hypertension Respiratory: Sleep apnea, CPAP use Neuro: None Endocrine/Autoimmune: None, Type 2 diabetes GI: GERD : None HEENT: None Psych: None Musculoskeletal: Gout Derm: None - Past Surgical History Past Surgical History: Yes Ortho: ACL reconstruction - Present Medications Home Medications: Ambulatory Orders Medication Instructions Recorded Confirmed Lisinopril/Hydrochlorothiazide 1 mg PO DAILY 06/06/15 05/12/17 [Lisinopril-Hctz 20-25 mg Tab] Metformin HCl 1,000 mg PO DAILY 06/06/15 05/12/17 Probenecid 500 mg PO DAILY 06/06/15 05/12/17 Sitagliptin Phosphate [Januvia] 50 mg PO DAILY 06/06/15 05/12/17 amLODIPine [Norvasc] 10 mg PO DAILY 08/26/16 05/12/17 Atorvastatin [Lipitor] 0 mg 11/09/18 Colchicine 0.6 mg PO 11/09/18 Colchicine 0.6 mg PO TID #30 tablet 11/09/18 Fexofenadine HCl 180 mg PO 11/09/18 Indomethacin 25 mg PO BID #30 capsule 11/09/18 Indomethacin [Indocin] 25 mg PO 11/09/18 Losartan [Cozaar] 50 mg PO DAILY 11/09/18 11/09/18 Pantoprazole [Protonix] 40 mg PO 11/09/18 Tramadol HCl 50 mg PO Q6H PRN #15 tablet 11/09/18 dexAMETHasone [Decadron] 4 mg PO DAILY #10 tablet 11/09/18 Cetirizine HCl/Pseudoephedrine 1 each PO BID PRN #30 tab.er.12h 03/02/19 [Zyrtec-D Tablet] Doxycycline Hyclate 100 mg PO BID #20 capsule 03/02/19 Albuterol Sulf [Ventolin Hfa 1 - 2 puffs INH Q4HR PRN #1 inhaler 03/05/19 Inhaler] predniSONE [Prednisone] 40 mg PO DAILY #10 tablet 03/05/19 Albuterol Sulfate [Proair Hfa 1 - 2 puffs INH Q4H PRN #1 inhaler 12/28/19 Inhaler] Cetirizine HCl/Pseudoephedrine 1 each PO BID PRN #30 tab.er.12h 12/28/19 [Zyrtec-D Tablet] predniSONE [Deltasone] 10 mg PO [id number] #42 tab 12/28/19 Calcium Carbonate 260 mg PO DAILY #10 tablet 03/09/20 Ondansetron Odt [Zofran] 4 mg TL Q6H PRN #15 tablet 03/09/20 Potassium Chloride 10 meq PO DAILY #5 tablet.er 03/09/20 Ibuprofen [Motrin] 600 mg PO Q6H PRN #30 tab 08/31/20 Methocarbamol [Robaxin-750] 750 mg PO TID PRN #30 tablet 08/31/20 - Allergies Allergies/Adverse Reactions: Allergies Allergy/AdvReac Type Severity Reaction Status Date / Time morphine AdvReac Itching Verified 08/31/20 11:11 - Social History Does the pt smoke?: No Smoking Status: Never smoker Does the pt drink ETOH?: No Does the pt have substance abuse?: No - Immunizations Immunizations are current?: Yes - POLST Patient has POLST: No PD ED PE EXPANDED - General General: Alert, No acute distress, In Pain. No: Anxious - HEENT HEENT: Atraumatic, PERRL - Neck Neck: Bony TTP, Limited ROM (reduced forward felxion secodnary to pain; supple. non meningeal). No: Brudzinki's - Cardiac Cardiac: Regular Rate, Regular Rhythm, Radial strong equal, Pedal strong equal. No: Murmur Present - Respiratory Respiratory: Clear to ausultation damion. No: Distress, Labored - Abdomen Abdomen: No: Tender to palpation - Back Back: Other (lower cervical midline tenderness. + pain C6-& axial loading. Motor strength is 5 of 5 bilateral upper extremities.Sensation preserved to sharp light touch bilateral arms in the ulnar and radial distribution bilaterally) - Neuro Neuro: Alert and Oriented X 3, CNII-XII intact, Normal gait, Normal finger nose, Normal speech - GCS Eye Opening: Spontaneous Motor: Obeys Commands Verbal: Oriented Total: 15 Results - Vitals Vitals: Vital Signs - 24 hr 08/31/20 11:11 Temperature 36.7 C Heart Rate 74 Respiratory 18 Rate Blood Pressure 144/102 H O2 Saturation 97 Oxygen O2 Source Room air - EKG (time done) 1211 Rate: Rate (enter#) (63) Rhythm: NSR [place]: Anterior hemiblock (LAFB) Intervals: Normal [place] QRS: Normal Ischemia: Normal ST segments Compare to prior EKG: Old EKG unavailable Computer interpretation: Agree with computer - Labs Labs: Laboratory Tests 08/31/20 08/31/20 08/31/20 12:18 12:18 12:18 WBC 7.3 RBC 4.59 L Hgb 13.0 L Hct 38.2 L MCV 83.2 MCH 28.3 MCHC 34.0 RDW 13.9 Plt Count 242 MPV 10.1 Neut # (Auto) 3.9 Lymph # (Auto) 2.4 [place] # (Auto) 0.6 Eos # (Auto) 0.4 Baso # (Auto) 0.1 Absolute Nucleated RBC 0.00 Nucleated RBC % 0.0 Sodium 137 Potassium 3.7 Chloride 96 L Carbon Dioxide 30 Anion Gap 11.0 BUN 14 Creatinine 0.9 Estimated GFR (MDRD) 89 Glucose 169 H Calcium 8.7 Total Bilirubin 0.4 AST 27 ALT 37 Alkaline Phosphatase 77 Troponin I High Sens 3.1 Total Protein 7.6 Albumin 4.4 Globulin 3.2 Albumin/Globulin Ratio 1.4 Lipase 32 - Rads (name of study) CXR Radiology: Final report received cervical xr Radiology: Final report received PD MEDICAL DECISION MAKING - ED course Complexity details: reviewed results, re-evaluated patient, considered differential, d/w patient ED course: 50-year-old male presents the emergency department for evaluation what he thinks is a pinched nerve. He has pain that radiates from his lower cervical spine down the left arm causing pain with movement. On exam he does have increased pain with axial loading but muscle strength is preserved. Sensation is preserved at this time. Routine labs including troponin,EKG, chest x-ray and cervical spine films do not show any acute or worrisome abnormalities. This gentleman was given 60 mg of Toradol in the emergency department with mild to moderate relief of the pain. I will prescribe methocarbamol on discharge and recommend very close follow-up with his primary care provider. He likely would benefit from physical therapy as I believe that he presents with cervical radiculopathy. Emergent return precautions were discussed. Departure - Departure Disposition: 01 Home, Self Care Clinical Impression: Neck pain, Cervical radicular pain Condition: Stable Record reviewed to determine appropriate education?: Yes Instructions: ED Cervical Radiculopathy Prescriptions: Ibuprofen [Motrin] 600 mg PO Q6H PRN #30 tab PRN Reason: Pain Methocarbamol [Robaxin-750] 750 mg PO TID PRN #30 tablet PRN Reason: Spasms Comments: Geoff your labs, EKG chest x-ray and cervical spine films do not show anything worrisome today. However I am most suspicious that you have developed cervical radiculopathy or may be developing changes in your spine that are compressing one of the nerves running to your arm. Please take the methocarbamol as a muscle relaxer 2-3 times a day for discomfort. Be very careful it may be slightly sedating and you should not drive if taking this medication. I would also like you to take ibuprofen with food 2-3 times a day as an anti- inflammatory and for discomfort. Please schedule a close follow-up with your primary care provider. In the long- term you would likely benefit from physical therapy. If your symptoms are worsening your primary doctor may need to order outpatient imaging such as an MRI.
[2020-08-31 12:23] LABS: BASOPHILS # (AUTO) 0.1 10^3/uL (0.0-0.1); BASOPHILS % (AUTO) 0.7 %; EOSINOPHILS # (AUTO) 0.4 10^3/uL (0.0-0.7); EOSINOPHILS % (AUTO) 4.8 %; LYMPHOCYTES # (AUTO) 2.4 10^3/uL (1.5-3.5); LYMPHOCYTES % (AUTO) 33.4 %; MEAN CORPUSCULAR HEMOGLOBIN 28.3 pg (27.0-31.0); MEAN CORPUSCULAR VOLUME 83.2 fL (80.0-94.0); MEAN PLATELET VOLUME 10.1 fL (7.4-11.4); MONOCYTES # (AUTO) 0.6 10^3/uL (0.0-1.0); MONOCYTES % (AUTO) 7.9 %; NEUTROPHILS # (AUTO) 3.9 10^3/uL (1.5-6.6); NEUTROPHILS % (AUTO) 52.8 %; PLT - PLATELET COUNT 242 10^3/uL (130-450); RED BLOOD COUNT 4.59 10^6/uL (4.70-6.10); RED CELL DISTRIBUTION WIDTH 13.9 % (12.0-15.0); WHITE BLOOD COUNT 7.3 x10^3/uL (4.8-10.8)
[2020-08-31 12:35] LABS: ALBUMIN 4.4 g/dL (3.2-5.5); ALBUMIN/GLOBULIN RATIO 1.4 (1.0-2.2); BILIRUBIN,TOTAL 0.4 mg/dL (0.2-1.0); CALCIUM 8.7 mg/dL (8.5-10.3); CREATININE 0.9 mg/dL (0.6-1.2); TOTAL PROTEIN 7.6 g/dL (6.7-8.2)
--- NOTE | 2020-08-31 12:35 | XRAY Report ---
PROCEDURE: Chest 1 View X-Ray INDICATIONS: chest pain TECHNIQUE: One view of the chest was acquired. COMPARISON: 03/09/2020 FINDINGS: Surgical changes and devices: None. Lungs and pleura: No pleural effusions or pneumothorax. Lungs are clear. Mediastinum: Mediastinal contours appear normal. Heart size is normal. Bones and chest wall: No suspicious bony lesions. Overlying soft tissues appear unremarkable. IMPRESSION: No evidence acute pulmonary process. Reviewed by: Cedric Munoz MD on 08/31/2020 12:34 PM PDT Approved by: Cedric Munoz MD on 08/31/2020 12:34 PM PDT Station ID: [id number]
--- NOTE | 2020-08-31 13:01 | XRAY Report ---
PROCEDURE: Cervical Spine 2 View INDICATIONS: Back and neck pain TECHNIQUE: 4 view(s) of the cervical spine were acquired. COMPARISON: None. FINDINGS: Bones: Normal cervical spine vertebral body height and alignment. There is no evidence of fracture. N o suspicious lytic or blastic osseous lesion. No significant degenerative changes identified. Soft tissues: No prevertebral soft tissue swelling. IMPRESSION: Unremarkable cervical spine radiographs. Reviewed by: Nishant Morales MD on 08/31/2020 1:00 PM PDT Approved by: Nishant Morales MD on 08/31/2020 1:00 PM PDT Station ID: [id number]
[2020-08-31 13:32] VITALS: BP 153/113
== END 2020-08-31 13:38 | disposition home or self-care (01) ==
LOC: ED 11:05
DX: M54.12 Radiculopathy, cervical region (principal); I10 Essential (primary) hypertension; E11.9 Type 2 diabetes mellitus without complications; Z79.84 Long term (current) use of oral hypoglycemic drugs
CPT/HCPCS: 36415; 71045; 72040; 80053; 83690; 84484; 85025; 93005; 96372; 99284

== ENCOUNTER 2020-12-03 16:39 | Emergency (ER) | payer OTHER ==
--- NOTE | 2020-12-03 17:11 | XRAY Report ---
PROCEDURE: Chest 2 View X-Ray INDICATIONS: cough TECHNIQUE: 2 view(s) of the chest. COMPARISON: None. FINDINGS: Surgical changes and devices: None. Lungs and pleura: No pleural effusions or pneumothorax. Lungs are clear. Mediastinum: Mediastinal contours are normal. Heart size is normal. Bones and chest wall: No suspicious bony abnormalities. Soft tissues appear unremarkable. IMPRESSION: No evidence acute pulmonary process. Reviewed by: Cedric Munoz MD on 12/03/2020 5:10 PM [facility] Approved by: Cedric Munoz MD on 12/03/2020 5:10 PM [facility] Station ID: [id number]
[2020-12-03 18:34] VITALS: BP 157/115
[2020-12-03] MEDS ORDERED: ALBUTEROL 1 PUFF INH STA (18:34)
[2020-12-03] MEDS ORDERED: predniSONE 20 MG TABLET PO STA (18:34)
[2020-12-03] MEDS ORDERED: BENZONATATE 100 MG CAPSULE PO STA (18:35)
--- NOTE | 2020-12-03 19:05 | ED Physician Documentation ---
PD HPI URI - Stated complaint Stated Complaint: Cough - Chief complaint Chief Complaint: Resp - History obtained from History obtained from: Patient - History of Present Illness Timing - onset: How many weeks ago (1) Timing duration: Weeks (1) Timing details: Gradual onset Pain level max: 0 Pain level now: 0 Associated symptoms: Nasal congestion, Rhinorrhea, Dry cough, Dyspnea (wheezing). No: Fever, Chills Contributing factors: COPD / asthma Improves by: Rest Worsened by: Activity, Breathing Recently seen: Not recently seen - Additional information Additional information: not currently using an inhaler Review of Systems Constitutional: denies: Fever, Chills GI: denies: Vomiting, Diarrhea Skin: denies: Rash Musculoskeletal: denies: Neck pain, Back pain Neurologic: denies: Headache PD PAST MEDICAL HISTORY - Past Medical History Cardiovascular: Hypertension Respiratory: Sleep apnea, CPAP use Neuro: None Endocrine/Autoimmune: None, Type 2 diabetes GI: GERD : None HEENT: None Psych: None Musculoskeletal: Gout Derm: None - Past Surgical History Past Surgical History: Yes Ortho: ACL reconstruction - Present Medications Home Medications: Ambulatory Orders Medication Instructions Recorded Confirmed Metformin HCl 1,000 mg PO DAILY 06/06/15 05/12/17 Probenecid 500 mg PO DAILY 06/06/15 05/12/17 Atorvastatin [Lipitor] 0 mg 11/09/18 Colchicine 0.6 mg PO TID #30 tablet 11/09/18 Fexofenadine HCl 180 mg PO 11/09/18 Pantoprazole [Protonix] 40 mg PO 11/09/18 Cetirizine HCl/Pseudoephedrine 1 each PO BID PRN #30 tab.er.12h 12/28/19 [Zyrtec-D Tablet] Albuterol Sulfate [Proair Hfa 1 - 2 puffs INH Q4H PRN #1 inhaler 12/03/20 Inhaler] Benzonatate [Tessalon] 200 mg PO TID PRN #30 capsule 12/03/20 Lisinopril/Hydrochlorothiazide 12/03/20 [Zestoretic 10-12.5 mg Tablet] predniSONE [Deltasone] 10 mg PO [id number] #42 tab 12/03/20 - Allergies Allergies/Adverse Reactions: Allergies Allergy/AdvReac Type Severity Reaction Status Date / Time morphine AdvReac Itching Verified 12/03/20 16:46 - Social History Does the pt smoke?: No Smoking Status: Never smoker Does the pt drink ETOH?: No Does the pt have substance abuse?: No - Immunizations Immunizations are current?: Yes - POLST Patient has POLST: No PD ED PE NORMAL - Vitals Vital signs reviewed: Yes - General General: Alert and oriented X 3, No acute distress, Well developed/nourished - HEENT HEENT: PERRL, Ears normal, Moist mucous membranes, Pharynx benign - Neck Neck: Supple, no meningeal sign, No adenopathy - Cardiac Cardiac: RRR, Strong equal pulses - Respiratory Respiratory: No respiratory distress, Clear bilaterally, Other (mild diminished BS bilaterally.) - Abdomen Abdomen: Soft, Non tender, Non distended - Derm Derm: Warm and dry - Neuro Neuro: Alert and oriented X 3 - Psych Psych: Normal mood, Normal affect Results - Vitals Vitals: Vital Signs - 24 hr 12/03/20 12/03/20 12/03/20 16:44 18:33 19:22 Temperature 36.7 C Heart Rate 78 66 66 Respiratory 20 16 16 Rate Blood Pressure 177/110 H 157/115 H O2 Saturation 99 97 Oxygen O2 Source Room air - Rads (name of study) cxr Radiology: Prelim report reviewed, EMP read contemporaneously, See rad report (No acute abnormality) PD MEDICAL DECISION MAKING - ED course Complexity details: reviewed results, considered differential, d/w patient ED course: Patient with what appears to be a viral upper respiratory infection. He is very well-appearing, nontoxic. Afebrile. No hypoxia. No respiratory distress. Feels better after albuterol treatment. Will place him on steroids for home. No indication for antibiotics. Covid test was sent. Patient counseled regarding signs and symptoms for which I believe and urgent re-evaluation would be necessary. Patient with good understanding of and agreement to plan and is comfortable going home at this time This document was made in part using voice recognition software. While efforts are made to proofread this document, sound alike and grammatical errors may occur. Departure - Departure Disposition: Home, Self Care Clinical Impression: Viral URI Condition: Good Instructions: ED URI Viral W Wheezing Follow-Up: LACY HANEY MD [Primary Care Provider] - Within 1 week Prescriptions: predniSONE [Deltasone] 10 mg PO [id number] #42 tab Albuterol Sulfate [Proair Hfa Inhaler] 1 - 2 puffs INH Q4H PRN #1 inhaler PRN Reason: Shortness Of Air/Wheezing Benzonatate [Tessalon] 200 mg PO TID PRN #30 capsule PRN Reason: Cough Comments: Return if you worsen. Use the inhaler to help improve breathing in your lungs. There is no pneumonia on your chest x-ray. Drink plenty of fluids and rest. You have a Covid test pending. You need to self quarantine until the result is done and negative. Do not leave your house. Do not get near anybody. The results should be done in 48 to 72 hours. We will call with a positive result, the fastest way to get a negative result for confirmation though is to go to the hospital website at [email or web address], click on the my [facility] tab and sign up for the patient portal. If any friends or family get sick and would like to have a Covid test done, but do not have signs or symptoms that would necessitate being hospitalized, we encourage testing through our coronavirus swabbing station, call [phone] to schedule an appointment. Discharge Date/Time: 12/03/20 19:41
== END 2020-12-03 19:41 | disposition home or self-care (01) ==
LOC: ED 16:39
DX: J06.9 Acute upper respiratory infection, unspecified (principal); Z20.822 Contact with and (suspected) exposure to COVID-19; I10 Essential (primary) hypertension; E11.9 Type 2 diabetes mellitus without complications; Z79.84 Long term (current) use of oral hypoglycemic drugs
CPT/HCPCS: 71046; 87635; 94640; 94664; 99283; 99284; A9270; J7512

== ENCOUNTER 2021-06-12 16:25 | Emergency (ER) | payer OTHER ==
[2021-06-12] MEDS ORDERED: SODIUM CHLORIDE 0.9% 1,000 ML IV STA (19:05)
--- NOTE | 2021-06-12 19:11 | ED Physician Documentation ---
PD HPI URI - Stated complaint Stated Complaint: NASAL DRIPPING - Chief complaint Chief Complaint: Resp - History obtained from History obtained from: Patient - History of Present Illness Timing - onset: How many days ago (3) Timing duration: Days (3) Timing details: Gradual onset Pain level max: 0 Pain level now: 0 Associated symptoms: Nasal congestion, Rhinorrhea, Productive cough. No: Fever, Chills, Dyspnea Contributing factors: Sick contact. No: COPD / asthma Improves by: Rest Worsened by: Activity, Breathing - Additional information Additional information: Patient complains of cough and congestion for the past 3 days. No fever or chills. He states that the cough has now gone to his chest and is a productive cough. He states his urine has been dark and he is concerned about dehydration as well. Review of Systems Constitutional: denies: Fever, Chills Skin: denies: Rash Musculoskeletal: denies: Neck pain, Back pain Neurologic: denies: Headache PD PAST MEDICAL HISTORY - Past Medical History Past Medical History: Yes Cardiovascular: Hypertension, High cholesterol Respiratory: Sleep apnea, CPAP use Neuro: None Endocrine/Autoimmune: Type 2 diabetes GI: GERD : None HEENT: None Psych: None Musculoskeletal: Gout Derm: None - Past Surgical History Past Surgical History: Yes Ortho: ACL reconstruction - Present Medications Home Medications: Ambulatory Orders Medication Instructions Recorded Confirmed Metformin HCl 1,000 mg PO BID 06/06/15 06/13/21 Atorvastatin [Lipitor] 10 mg ORAL DAILY 11/09/18 06/13/21 Fexofenadine HCl 180 mg PO DAILY 11/09/18 06/13/21 Pantoprazole [Protonix] 40 mg PO DAILY 11/09/18 06/13/21 Cetirizine HCl/Pseudoephedrine 1 each PO BID PRN #30 tab.er.12h 12/28/19 06/13/21 [Zyrtec-D Tablet] Lisinopril/Hydrochlorothiazide 1 tab ORAL DAILY 12/03/20 06/13/21 [Zestoretic 10-12.5 mg Tablet] Aspirin EC [Ecotrin] 81 mg PO DAILY 06/12/21 06/13/21 Benzonatate [Tessalon] 200 mg PO TID PRN #30 cap 06/12/21 06/13/21 Cetirizine HCl/Pseudoephedrine 1 each PO BID PRN #30 ea 06/12/21 06/13/21 [Zyrtec-D Tablet] Dulaglutide [Trulicity] 1.5 mg SQ ONCE 06/12/21 06/13/21 Indomethacin [Indocin] 25 mg ORAL DAILY 06/12/21 06/13/21 Propranolol [Inderal] 10 mg PO BID 06/12/21 06/13/21 Colchicine [Colcrys] 0.6 mg PO DAILY 06/13/21 06/13/21 predniSONE [Prednisone 21-TAB dose 60 mg PO QDAC 6 Days #21 tab 06/13/21 pack] - Allergies Allergies/Adverse Reactions: Allergies Allergy/AdvReac Type Severity Reaction Status Date / Time morphine AdvReac Itching Verified 06/13/21 22:31 - Social History Does the pt smoke?: No Smoking Status: Never smoker Does the pt drink ETOH?: No Does the pt have substance abuse?: No - Immunizations Immunizations are current?: Yes - POLST Patient has POLST: No PD ED PE NORMAL - Vitals Vital signs reviewed: Yes - General General: Alert and oriented X 3, No acute distress, Well developed/nourished - HEENT HEENT: PERRL, Ears normal, Moist mucous membranes, Pharynx benign, Other (Clear Rhinorrhea) - Neck Neck: Supple, no meningeal sign, No adenopathy - Cardiac Cardiac: RRR, Strong equal pulses - Respiratory Respiratory: No respiratory distress, Clear bilaterally - Abdomen Abdomen: Soft, Non tender, Non distended - Derm Derm: Warm and dry, No rash - Extremities Extremities: No edema - Neuro Neuro: Alert and oriented X 3 - Psych Psych: Normal mood, Normal affect Results - Vitals Vitals: Oxygen O2 Source Room air - Labs Labs: Laboratory Tests 06/12/21 06/12/21 19:16 19:16 WBC 7.7 RBC 4.52 L Hgb 11.5 L Hct 36.0 L MCV 79.6 L MCH 25.4 L MCHC 31.9 L RDW 15.5 H Plt Count 258 MPV 10.3 Neut # (Auto) 4.7 Lymph # (Auto) 1.9 [place] # (Auto) 0.7 Eos # (Auto) 0.3 Baso # (Auto) 0.1 Absolute Nucleated RBC 0.00 Nucleated RBC % 0.0 Sodium 137 Potassium 4.1 Chloride 97 L Carbon Dioxide 30 Anion Gap 10.0 BUN 19 Creatinine 1.0 Estimated GFR (MDRD) 79 L Glucose 136 H Calcium 8.5 Total Bilirubin 0.8 AST 27 ALT 42 Alkaline Phosphatase 79 Total Protein 7.4 Albumin 4.1 Globulin 3.3 Albumin/Globulin Ratio 1.2 PD MEDICAL DECISION MAKING - ED course Complexity details: considered differential, d/w patient ED course: Patient is very well-appearing, nontoxic. Afebrile. Tolerating p.o. without difficulty. Given IV fluids and feels better. No indication for x-ray. Lungs are clear to auscultation bilaterally. We will continue supportive care and have him follow-up with his doctor for further care. Patient counseled regarding signs and symptoms for which I believe and urgent re-evaluation would be necessary. Patient with good understanding of and agreement to plan and is comfortable going home at this time This document was made in part using voice recognition software. While efforts a re made to proofread this document, sound alike and grammatical errors may occur. Departure - Departure Disposition: 01 Home, Self Care Clinical Impression: Viral URI with cough Condition: Good Instructions: ED Viral Syndrome Follow-Up: Zhanna Oviedo MD [Primary Care Provider] - Within 1 week (if not better ) Prescriptions: Benzonatate [Tessalon] 200 mg PO TID PRN #30 cap PRN Reason: Cough Cetirizine HCl/Pseudoephedrine [Zyrtec-D Tablet] 1 each PO BID PRN #30 ea PRN Reason: nasal congestion Comments: Follow up with your doctor for further care. Your chest xray does not show any acute abnormalities. There is no indication for antibiotics at this time. Discharge Date/Time: 06/12/21 21:00
[2021-06-12 19:25] LABS: WHITE BLOOD COUNT 7.7 x10^3/uL (4.8-10.8)
[2021-06-12 19:26] LABS: HGB - HEMOGLOBIN 11.5 g/dL (14.0-18.0); MEAN CORPUSCULAR HEMOGLOBIN 25.4 pg (27.0-31.0); MEAN CORPUSCULAR HGB CONC 31.9 g/dL (32.0-36.0); MEAN CORPUSCULAR VOLUME 79.6 fL (80.0-94.0); RED BLOOD COUNT 4.52 10^6/uL (4.70-6.10)
[2021-06-12 19:27] LABS: BASOPHILS % (AUTO) 0.6 %; EOSINOPHILS % (AUTO) 3.6 %; LYMPHOCYTES % (AUTO) 25.2 %; MEAN PLATELET VOLUME 10.3 fL (7.4-11.4); MONOCYTES % (AUTO) 9.2 %; NEUTROPHILS % (AUTO) 61.3 %; PLT - PLATELET COUNT 258 10^3/uL (130-450); RED CELL DISTRIBUTION WIDTH 15.5 % (12.0-15.0)
[2021-06-12 19:28] LABS: LYMPHOCYTES # (AUTO) 1.9 10^3/uL (1.5-3.5); MONOCYTES # (AUTO) 0.7 10^3/uL (0.0-1.0); NEUTROPHILS # (AUTO) 4.7 10^3/uL (1.5-6.6)
[2021-06-12 19:29] LABS: BASOPHILS # (AUTO) 0.1 10^3/uL (0.0-0.1); EOSINOPHILS # (AUTO) 0.3 10^3/uL (0.0-0.7)
[2021-06-12 19:43] LABS: BILIRUBIN,TOTAL 0.8 mg/dL (0.2-1.0); CALCIUM 8.5 mg/dL (8.5-10.3); POTASSIUM 4.1 mmol/L (3.5-5.0)
[2021-06-12 19:44] LABS: ALBUMIN 4.1 g/dL (3.2-5.5); ALBUMIN/GLOBULIN RATIO 1.2 (1.0-2.2); TOTAL PROTEIN 7.4 g/dL (6.7-8.2)
[2021-06-12 20:46] VITALS: BP 143/105
--- NOTE | 2021-06-16 15:00 | XRAY Report ---
PROCEDURE: X-RAY OF THE CHEST TWO VIEWS [[id number]] INDICATIONS: chest pain TECHNIQUE: PA and lateral views of the chest COMPARISON: Chest radiographs 12/01/2020 FINDINGS: The lungs are clear. No pleural effusion or pneumothorax. The cardiac mediastinal silhouette is withi n normal limits. No acute osseous abnormality is seen. IMPRESSION: No acute cardiopulmonary abnormality. Reviewed by: Raza Bar MD on 06/12/2021 8:07 PM PDT Approved by: Raza Bar MD on 06/12/2021 8:07 PM PDT Station ID: [id number]
== END 2021-06-12 21:00 | disposition home or self-care (01) ==
LOC: ED 16:25
DX: J06.9 Acute upper respiratory infection, unspecified (principal); Z20.822 Contact with and (suspected) exposure to COVID-19
CPT/HCPCS: 36415; 80053; 85025; 99283; 99284

== ENCOUNTER 2021-06-13 22:14 | Emergency (ER) | payer OTHER ==
[2021-06-13] MEDS ORDERED: predniSONE 20 MG TABLET PO STA (23:06)
[2021-06-13] MEDS ORDERED: KETOROLAC 30 MG/ML VIAL IM STA (23:06)
--- NOTE | 2021-06-13 23:08 | ED Physician Documentation ---
History of Present Illness - Stated complaint Stated Complaint: L FT GOUTE ATTACK - Chief complaint Chief Complaint: Ext Problem PD PAST MEDICAL HISTORY - Past Medical History Past Medical History: Yes Cardiovascular: Hypertension, High cholesterol Respiratory: Sleep apnea, CPAP use Neuro: None Endocrine/Autoimmune: Type 2 diabetes GI: GERD : None HEENT: None Psych: None Musculoskeletal: Gout Derm: None - Past Surgical History Past Surgical History: Yes Ortho: ACL reconstruction - Present Medications Home Medications: Ambulatory Orders Medication Instructions Recorded Confirmed Metformin HCl 1,000 mg PO BID 06/06/15 06/13/21 Atorvastatin [Lipitor] 10 mg ORAL DAILY 11/09/18 06/13/21 Fexofenadine HCl 180 mg PO DAILY 11/09/18 06/13/21 Pantoprazole [Protonix] 40 mg PO DAILY 11/09/18 06/13/21 Cetirizine HCl/Pseudoephedrine 1 each PO BID PRN #30 tab.er.12h 12/28/19 06/13/21 [Zyrtec-D Tablet] Lisinopril/Hydrochlorothiazide 1 tab ORAL DAILY 12/03/20 06/13/21 [Zestoretic 10-12.5 mg Tablet] Aspirin EC [Ecotrin] 81 mg PO DAILY 06/12/21 06/13/21 Benzonatate [Tessalon] 200 mg PO TID PRN #30 cap 06/12/21 06/13/21 Cetirizine HCl/Pseudoephedrine 1 each PO BID PRN #30 ea 06/12/21 06/13/21 [Zyrtec-D Tablet] Dulaglutide [Trulicity] 1.5 mg SQ ONCE 06/12/21 06/13/21 Indomethacin [Indocin] 25 mg ORAL DAILY 06/12/21 06/13/21 Propranolol [Inderal] 10 mg PO BID 06/12/21 06/13/21 Colchicine [Colcrys] 0.6 mg PO DAILY 06/13/21 06/13/21 predniSONE [Prednisone 21-TAB dose 60 mg PO QDAC 6 Days #21 tab 06/13/21 pack] - Allergies Allergies/Adverse Reactions: Allergies Allergy/AdvReac Type Severity Reaction Status Date / Time morphine AdvReac Itching Verified 06/13/21 22:31 - Social History Does the pt smoke?: No Smoking Status: Never smoker Does the pt drink ETOH?: No Does the pt have substance abuse?: No - Immunizations Immunizations are current?: Yes - POLST Patient has POLST: No Results - Vitals Vitals: Vital Signs - 24 hr 06/13/21 06/13/21 22:16 22:51 Temperature 36 C L 36.1 C L Heart Rate 72 72 Respiratory 16 16 Rate Blood Pressure 146/100 H 146/100 H O2 Saturation 99 99 Oxygen O2 Source Room air Departure - Departure Disposition: Home, Self Care Clinical Impression: Gout flare Condition: Good Instructions: Gout Prescriptions: predniSONE [Prednisone 21-TAB dose pack] 60 mg PO QDAC 6 Days #21 tab Comments: You were seen in the emergency department for a gout flare. I hope you feel better! Please return to the emergency department if you have any new or worsening symptoms or other concerns. [place]
--- NOTE | 2021-06-13 23:10 | ED Physician Documentation ---
History of Present Illness - Stated complaint Stated Complaint: David KHAN GOUTE ATTACK - Chief complaint Chief Complaint: Ext Problem - History obtained from History obtained from: Patient - Additonal information Additional information: 51-year-old man with past medical history of gout presents with left foot pain last week that improved with indomethacin and colchicine, worsening again today. [place] [employer] [place] and started to develop left foot pain over the course the day with associated swelling. No redness, no fevers, FROM. no injury Review of Systems Musculoskeletal: reports: Extremity pain, Extremity swelling PD PAST MEDICAL HISTORY - Past Medical History Past Medical History: Yes Cardiovascular: Hypertension, High cholesterol Respiratory: Sleep apnea, CPAP use Neuro: None Endocrine/Autoimmune: Type 2 diabetes GI: GERD : None HEENT: None Psych: None Musculoskeletal: Gout Derm: None - Past Surgical History Past Surgical History: Yes Ortho: ACL reconstruction - Present Medications Home Medications: Ambulatory Orders Medication Instructions Recorded Confirmed Metformin HCl 1,000 mg PO BID 06/06/15 06/13/21 Atorvastatin [Lipitor] 10 mg ORAL DAILY 11/09/18 06/13/21 Fexofenadine HCl 180 mg PO DAILY 11/09/18 06/13/21 Pantoprazole [Protonix] 40 mg PO DAILY 11/09/18 06/13/21 Cetirizine HCl/Pseudoephedrine 1 each PO BID PRN #30 tab.er.12h 12/28/19 06/13/21 [Zyrtec-D Tablet] Lisinopril/Hydrochlorothiazide 1 tab ORAL DAILY 12/03/20 06/13/21 [Zestoretic 10-12.5 mg Tablet] Aspirin EC [Ecotrin] 81 mg PO DAILY 06/12/21 06/13/21 Benzonatate [Tessalon] 200 mg PO TID PRN #30 cap 06/12/21 06/13/21 Cetirizine HCl/Pseudoephedrine 1 each PO BID PRN #30 ea 06/12/21 06/13/21 [Zyrtec-D Tablet] Dulaglutide [Trulicity] 1.5 mg SQ ONCE 06/12/21 06/13/21 Indomethacin [Indocin] 25 mg ORAL DAILY 06/12/21 06/13/21 Propranolol [Inderal] 10 mg PO BID 08/01/21 08/02/21 Colchicine [Colcrys] 0.6 mg PO DAILY 06/13/21 06/13/21 predniSONE [Prednisone 21-TAB dose 60 mg PO QDAC 6 Days #21 tab 06/13/21 pack] - Allergies Allergies/Adverse Reactions: Allergies Allergy/AdvReac Type Severity Reaction Status Date / Time morphine AdvReac Itching Verified 06/13/21 22:31 - Social History Does the pt smoke?: No Smoking Status: Never smoker Does the pt drink ETOH?: No Does the pt have substance abuse?: No - Immunizations Immunizations are current?: Yes - POLST Patient has POLST: No PD ED PE NORMAL - Vitals Vital signs reviewed: Yes - General General: Alert and oriented X 3, No acute distress, Well developed/nourished - HEENT HEENT: Atraumatic, PERRL, EOMI - Derm Derm: Normal color, Warm and dry - Extremities Extremities: Other (2+ bilateral DP pulses. Normal capillary refill. Left 1st MTP joint tender to palpation with swelling.) Results - Vitals Vitals: Vital Signs - 24 hr 06/13/21 06/13/21 22:16 22:51 Temperature 36 C L 36.1 C L Heart Rate 72 72 Respiratory 16 16 Rate Blood Pressure 146/100 H 146/100 H O2 Saturation 99 99 Oxygen O2 Source Room air PD MEDICAL DECISION MAKING - ED course ED course: 51-year-old man presented with gout flare. Prednisone and Toradol given in the emergency department. Prednisone prescription provided. Return precautions given. [place] Departure - Departure Disposition: 01 Home, Self Care Clinical Impression: Gout flare Condition: Good Instructions: Gout Prescriptions: predniSONE [Prednisone 21-TAB dose pack] 60 mg PO QDAC 6 Days #21 tab Comments: You were seen in the emergency department for a gout flare. I hope you feel better! Please return to the emergency department if you have any new or worsening symptoms or other concerns. [place]
[2021-06-13 23:37] VITALS: BP 141/89
== END 2021-06-13 23:50 | disposition home or self-care (01) ==
LOC: ED 22:14
DX: M10.072 Idiopathic gout, left ankle and foot (principal); I10 Essential (primary) hypertension; E11.9 Type 2 diabetes mellitus without complications; Z79.84 Long term (current) use of oral hypoglycemic drugs; Z79.82 Long term (current) use of aspirin
CPT/HCPCS: 96372; 99283; J7512

== ENCOUNTER 2021-11-15 13:47 | Emergency (ER) | payer OTHER ==
[2021-11-15 13:57] VITALS: BP 130/98
--- NOTE | 2021-11-15 15:41 | ED Physician Documentation ---
History of Present Illness - Stated complaint Stated Complaint: THROAT PX/ACHY - Chief complaint Chief Complaint: Resp - History obtained from History obtained from: Patient - History of Present Illness Timing: How many days ago (4) Pain level max: 2 Pain level now: 2 - Additonal information Additional information: Patient is a 51-year-old male who presents to the emergency department with sinus congestion, mild cough and sore throat for the past 2 to 3 days. Nothing makes it better or worse. Has had some nausea as well. 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 Patient is Covid vaccinated. He had one episode of emesis last night. Also has a mild dry cough. Review of Systems Constitutional: denies: Fever, Chills Nose: reports: Rhinorrhea / runny nose, Congestion Throat: reports: Sore throat Respiratory: reports: Cough GI: denies: Abdominal Pain, Vomiting, Diarrhea Skin: denies: Rash Musculoskeletal: denies: Neck pain, Back pain Neurologic: denies: Headache PD PAST MEDICAL HISTORY - Past Medical History Past Medical History: Yes Cardiovascular: Hypertension, High cholesterol Respiratory: Sleep apnea, CPAP use Neuro: None Endocrine/Autoimmune: Type 2 diabetes GI: GERD : None HEENT: None Psych: None Musculoskeletal: Gout Derm: None - Past Surgical History Past Surgical History: Yes Ortho: ACL reconstruction - Present Medications Home Medications: Ambulatory Orders Medication Instructions Recorded Confirmed Metformin HCl 1,000 mg PO BID 06/06/15 06/13/21 Atorvastatin [Lipitor] 10 mg ORAL DAILY 11/09/18 06/13/21 Fexofenadine HCl 180 mg PO DAILY 11/09/18 06/13/21 Pantoprazole [Protonix] 40 mg PO DAILY 11/09/18 06/13/21 Cetirizine HCl/Pseudoephedrine 1 each PO BID PRN #30 tab.er.12h 12/28/19 06/13/21 [Zyrtec-D Tablet] Lisinopril/Hydrochlorothiazide 1 tab ORAL DAILY 12/03/20 06/13/21 [Zestoretic 10-12.5 mg Tablet] Aspirin EC [Ecotrin] 81 mg PO DAILY 06/12/21 06/13/21 Benzonatate [Tessalon] 200 mg PO TID PRN #30 cap 06/12/21 06/13/21 Cetirizine HCl/Pseudoephedrine 1 each PO BID PRN #30 ea 06/12/21 06/13/21 [Zyrtec-D Tablet] Dulaglutide [Trulicity] 1.5 mg SQ ONCE 06/12/21 06/13/21 Indomethacin [Indocin] 25 mg ORAL DAILY 06/12/21 06/13/21 Propranolol [Inderal] 10 mg PO BID 06/12/21 06/13/21 Colchicine [Colcrys] 0.6 mg PO DAILY 06/13/21 06/13/21 predniSONE [Prednisone 21-TAB dose 60 mg PO QDAC 6 Days #21 tab 06/13/21 pack] Benzonatate [Tessalon] 200 mg PO TID PRN #30 cap 11/15/21 Cetirizine HCl/Pseudoephedrine 1 each PO BID PRN #30 ea 11/15/21 [Zyrtec-D Tablet] Ondansetron Odt [Zofran] 4 mg TL Q6H PRN #10 tablet 11/15/21 - Allergies Allergies/Adverse Reactions: Allergies Allergy/AdvReac Type Severity Reaction Status Date / Time morphine AdvReac Itching Verified 11/15/21 13:58 - Social History Does the pt smoke?: No Smoking Status: Never smoker Does the pt drink ETOH?: No Does the pt have substance abuse?: No - Immunizations Immunizations are current?: Yes - POLST Patient has POLST: No PD ED PE NORMAL - Vitals Vital signs reviewed: Yes - General General: Alert and oriented X 3, No acute distress, Well developed/nourished - HEENT HEENT: PERRL, Ears normal, Moist mucous membranes, Pharynx benign - Neck Neck: Supple, no meningeal sign - Cardiac Cardiac: RRR, Strong equal pulses - Respiratory Respiratory: No respiratory distress, Clear bilaterally - Abdomen Abdomen: Soft, Non tender, Non distended - Derm Derm: Warm and dry - Neuro Neuro: Alert and oriented X 3 - Psych Psych: Normal mood, Normal affect Results - Vitals Vitals: Vital Signs - 24 hr 11/15/21 13:51 Temperature 35.5 C L Heart Rate 66 Respiratory 18 Rate Blood Pressure 130/98 H O2 Saturation 100 Oxygen O2 Source Room air PD MEDICAL DECISION MAKING - ED course Complexity details: considered differential, d/w patient ED course: Tolerating p.o. without difficulty. Appears consistent with a viral syndrome. Patient is well-appearing, nontoxic. Afebrile. Covid testing performed. We will continue supportive care and have him follow-up with his doctor for further care. Patient counseled regarding signs and symptoms for which I believe and urgent re-evaluation would be necessary. Patient with good understanding of and agreement to plan and is comfortable going home at this time This document was made in part using voice recognition software. While efforts are made to proofread this document, sound alike and grammatical errors may occur. Departure - Departure Disposition: Home, Self Care Clinical Impression: Viral URI with cough, Gastroenteritis Condition: Good Instructions: ED Viral Syndrome Follow-Up: LACY HANEY MD [Primary Care Provider] - As Needed Prescriptions: Benzonatate [Tessalon] 200 mg PO TID PRN #30 cap PRN Reason: Cough Ondansetron Odt [Zofran] 4 mg TL Q6H PRN #10 tablet PRN Reason: Nausea / Vomiting Cetirizine HCl/Pseudoephedrine [Zyrtec-D Tablet] 1 each PO BID PRN #30 ea PRN Reason: nasal congestion Comments: Drink plenty of fluids and rest. Follow-up with your doctor as needed for further care. Return if you worsen. Your prescriptions were sent to [facility] in [place]. You have a Covid test pending. You need to self quarantine until the result is done and negative. The results should be done in 24-48 hours. We will call with a positive result, the fastest way to get a negative result for confirmation though is to go to the hospital website at [email or web address], click on the my [email or web address] tab and sign up for the patient portal. If any of your friends and/or family need to be tested, they can call the hospital at [phone] for an appointment to have their Covid test. Discharge Date/Time: 11/15/21 15:59
== END 2021-11-15 15:59 | disposition home or self-care (01) ==
LOC: ED 13:47
DX: J06.9 Acute upper respiratory infection, unspecified (principal); K52.9 Noninfective gastroenteritis and colitis, unspecified; Z20.822 Contact with and (suspected) exposure to COVID-19
CPT/HCPCS: 99283

== ENCOUNTER 2022-03-14 17:04 | Emergency (ER) | payer OTHER ==
[2022-03-14 17:09] VITALS: BP 145/115
--- NOTE | 2022-03-14 17:25 | ED Physician Documentation ---
History of Present Illness - Stated complaint Stated Complaint: RT TOE/LT ANKLE PX & SWELLING - Chief complaint Chief Complaint: Ext Problem - Additonal information Additional information: 52-year-old male presents emergency department for evaluation of pain swelling and redness at the MCP joint of the right foot. This is his typical site of gout flare. He was previously on colchicine and allopurinol but his doctor at [facility] switched him to indomethacin. He does not take that routinely as it causes stomach upset. He has had no fevers falls or trauma. Review of Systems Constitutional: denies: Fever, Chills Throat: reports: Reviewed and negative Cardiac: reports: Reviewed and negative Respiratory: reports: Reviewed and negative GI: reports: Reviewed and negative Musculoskeletal: reports: Joint pain PD PAST MEDICAL HISTORY - Past Medical History Cardiovascular: Hypertension, High cholesterol Respiratory: Sleep apnea, CPAP use Neuro: None Endocrine/Autoimmune: Type 2 diabetes GI: GERD : None HEENT: None Psych: None Musculoskeletal: Gout Derm: None - Past Surgical History Past Surgical History: Yes Ortho: ACL reconstruction - Present Medications Home Medications: Ambulatory Orders Medication Instructions Recorded Confirmed Metformin HCl 1,000 mg PO BID 06/06/15 06/13/21 Atorvastatin [Lipitor] 10 mg ORAL DAILY 11/09/18 06/13/21 Fexofenadine HCl 180 mg PO DAILY 11/09/18 06/13/21 Pantoprazole [Protonix] 40 mg PO DAILY 11/09/18 06/13/21 Cetirizine HCl/Pseudoephedrine 1 each PO BID PRN #30 tab.er.12h 12/28/19 06/13/21 [Zyrtec-D Tablet] Lisinopril/Hydrochlorothiazide 1 tab ORAL DAILY 12/03/20 06/13/21 [Zestoretic 10-12.5 mg Tablet] Aspirin EC [Ecotrin] 81 mg PO DAILY 06/12/21 06/13/21 Benzonatate [Tessalon] 200 mg PO TID PRN #30 cap 06/12/21 06/13/21 Cetirizine HCl/Pseudoephedrine 1 each PO BID PRN #30 ea 06/12/21 06/13/21 [Zyrtec-D Tablet] Dulaglutide [Trulicity] 1.5 mg SQ ONCE 06/12/21 06/13/21 Indomethacin [Indocin] 25 mg ORAL DAILY 06/12/21 06/13/21 Propranolol [Inderal] 10 mg PO BID 06/12/21 06/13/21 Colchicine [Colcrys] 0.6 mg PO DAILY 06/13/21 06/13/21 predniSONE [Prednisone 21-TAB dose 60 mg PO QDAC 6 Days #21 tab 06/13/21 pack] Benzonatate [Tessalon] 200 mg PO TID PRN #30 cap 11/15/21 Cetirizine HCl/Pseudoephedrine 1 each PO BID PRN #30 ea 11/15/21 [Zyrtec-D Tablet] Ondansetron Odt [Zofran] 4 mg TL Q6H PRN #10 tablet 11/15/21 predniSONE [Deltasone] 40 mg PO DAILY 5 Days #10 tablet 03/14/22 - Allergies Allergies/Adverse Reactions: Allergies Allergy/AdvReac Type Severity Reaction Status Date / Time morphine AdvReac Itching Verified 03/14/22 17:07 - Social History Does the pt smoke?: No Smoking Status: Never smoker Does the pt drink ETOH?: No Does the pt have substance abuse?: No - Immunizations Immunizations are current?: Yes - POLST Patient has POLST: No PD ED PE EXPANDED - Extremities Extremities: Right foot (Swelling and erythema at MCP of the right great toe. 2+ DP pulse.) Results - Vitals Vitals: Vital Signs - 24 hr 03/14/22 17:07 Temperature 36.8 C Heart Rate 62 Respiratory 18 Rate Blood Pressure 145/115 H O2 Saturation 100 Oxygen O2 Source Room air PD MEDICAL DECISION MAKING - ED course Complexity details: considered differential, d/w patient ED course: 52-year-old male presents emergency department for evaluation of swelling and erythema at MCP of the right great toe on the right foot. History and exam is consistent with gout as well as patient's known history of gout. Patient has been taking indomethacin intermittently for control the gout but does not like it as it causes stomach upset. He was previously on allopurinol and or colchicine. Patient will be started on a 5-day burst of prednisone. Recommend close follow-up with PCP to do to determine if he would benefit from an alternative longer-term suppressive medication outside of indomethacin. Departure - Departure Disposition: 01 Home, Self Care Clinical Impression: Gout attack Qualifiers: Gout site: toe Gout etiology: unspecified cause Laterality: right Qualified Code(s): M10.9 - Gout, unspecified Condition: Stable Record reviewed to determine appropriate education?: Yes Prescriptions: predniSONE [Deltasone] 40 mg PO DAILY 5 Days #10 tablet Comments: Geoff harman are seen today in the emergency department for swelling of your great toe on your right foot. Your swelling and redness is consistent with gout that you are known to have. Please fill the prescription for the prednisone at the [facility] in [place]. Once this gout flare is over it is important that you discuss with a primary care doctor longer-term management of gout with either medication such as allopurinol or colchicine. If you find that you have worsening symptoms, any fevers, redness or concerns of infection then please return immediately to the ER for second evaluation
== END 2022-03-14 17:30 | disposition home or self-care (01) ==
LOC: ED 17:04
DX: M10.9 Gout, unspecified (principal)
CPT/HCPCS: 99281; 99282

== ENCOUNTER 2023-04-11 15:08 | Emergency (ER) | payer OTHER ==
[2023-04-11 15:18] VITALS: BP 136/90
--- NOTE | 2023-04-11 15:28 | ED Physician Documentation ---
History of Present Illness - Stated complaint Stated Complaint: RT FOOT PX/SWELLING - Chief complaint Chief Complaint: Ext Problem - History obtained from History obtained from: Patient - Additonal information Additional information: 53-year-old gentleman with recurrent gout has had about 2 days of pain at the right first MTP consistent with prior episodes of gout. He is already on indomethacin. PD PAST MEDICAL HISTORY - Past Medical History Cardiovascular: Hypertension, High cholesterol Respiratory: Sleep apnea, CPAP use Neuro: None Endocrine/Autoimmune: Type 2 diabetes GI: GERD : None HEENT: None Psych: None Musculoskeletal: Gout Derm: None - Past Surgical History Past Surgical History: Yes Ortho: ACL reconstruction - Present Medications Home Medications: Ambulatory Orders Medication Instructions Recorded Confirmed Metformin HCl 1,000 mg PO BID 06/06/15 06/13/21 Atorvastatin [Lipitor] 10 mg ORAL DAILY 11/09/18 06/13/21 Fexofenadine HCl 180 mg PO DAILY 11/09/18 06/13/21 Pantoprazole [Protonix] 40 mg PO DAILY 11/09/18 06/13/21 Cetirizine HCl/Pseudoephedrine 1 each PO BID PRN #30 tab.er.12h 12/28/19 06/13/21 [Zyrtec-D Tablet] Lisinopril/Hydrochlorothiazide 1 tab ORAL DAILY 12/03/20 06/13/21 [Zestoretic 10-12.5 mg Tablet] Aspirin EC [Ecotrin] 81 mg PO DAILY 06/12/21 06/13/21 Benzonatate [Tessalon] 200 mg PO TID PRN #30 cap 06/12/21 06/13/21 Cetirizine HCl/Pseudoephedrine 1 each PO BID PRN #30 ea 06/12/21 06/13/21 [Zyrtec-D Tablet] Dulaglutide [Trulicity] 1.5 mg SQ ONCE 06/12/21 06/13/21 Indomethacin [Indocin] 25 mg ORAL DAILY 06/12/21 06/13/21 Propranolol [Inderal] 10 mg PO BID 06/12/21 06/13/21 Colchicine [Colcrys] 0.6 mg PO DAILY 06/13/21 06/13/21 predniSONE [Prednisone 21-TAB dose 60 mg PO QDAC 6 Days #21 tab 06/13/21 pack] Benzonatate [Tessalon] 200 mg PO TID PRN #30 cap 11/15/21 Cetirizine HCl/Pseudoephedrine 1 each PO BID PRN #30 ea 11/15/21 [Zyrtec-D Tablet] Ondansetron Odt [Zofran] 4 mg TL Q6H PRN #10 tablet 11/15/21 predniSONE [Deltasone] 40 mg PO DAILY 5 Days #10 tablet 03/14/22 Ondansetron Odt [Zofran] 4 mg TL Q6H PRN #10 tablet 04/20/22 predniSONE [Deltasone] 40 mg PO DAILY 3 Days #6 tablet 04/20/22 predniSONE [Deltasone] 60 mg PO DAILY 5 Days #15 tablet 04/11/23 - Allergies Allergies/Adverse Reactions: Allergies Allergy/AdvReac Type Severity Reaction Status Date / Time morphine AdvReac Itching Verified 04/11/23 15:13 - Social History Does the pt smoke?: No Smoking Status: Never smoker Does the pt drink ETOH?: No Does the pt have substance abuse?: No - Immunizations Immunizations are current?: Yes - POLST Patient has POLST: No PD ED PE NORMAL - Vitals Vital signs reviewed: Yes - General General: Alert and oriented X 3, No acute distress - Extremities Extremities: Other (Redness warmth and swelling of the right first MTP consistent with a gout flare. No cellulitis.) - Neuro Neuro: Alert and oriented X 3, Normal speech Results - Vitals Vitals: Vital Signs - 24 hr 04/11/23 15:14 Temperature 36.5 C Heart Rate 74 Respiratory 16 Rate Blood Pressure 136/90 H O2 Saturation 100 Oxygen O2 Source Room air PD Medical Decision Making - ED course ED course: We will add prednisone and he has colchicine at home and advised to restart that as well. Departure - Departure Disposition: Home, Self Care Clinical Impression: Podagra Condition: Good Record reviewed to determine appropriate education?: Yes Instructions: ED Arthritis Gout, ED Diet Gout Prescriptions: predniSONE [Deltasone] 60 mg PO DAILY 5 Days #15 tablet Comments: You can restart the colchicine you already have. I presume the tablets are 0.6 mg each. Take 2 now followed by another 1 tablet after about an hour. Then you can take 1 tablet a day until the gout flare resolves. For the prednisone, make sure you are following your blood sugars, stop the prednisone if it goes over about 250. Return if worse. You can talk with your doctor about restarting allopurinol, but you do not want to start it for about 6 weeks it is as it will make the current flare worse.
== END 2023-04-11 15:45 | disposition home or self-care (01) ==
LOC: ED 15:08
DX: M10.9 Gout, unspecified (principal); I10 Essential (primary) hypertension; E11.9 Type 2 diabetes mellitus without complications; Z79.85 Long-term (current) use of injectable non-insulin antidiabetic drugs
CPT/HCPCS: 99281; 99283

== ENCOUNTER 2023-10-25 10:30 | Emergency (ER) | payer OTHER ==
--- NOTE | 2023-10-25 10:55 | ED Physician Documentation ---
PD HPI LOWER EXT INJURY - Stated complaint Stated Complaint: BILAT KNEE/ANKLE SWELLING - Chief complaint Chief Complaint: Ext Problem - History obtained from History obtained from: Patient - History of Present Illness PD HPI LOW EXT INJURY LOCATION: Both, Knee, Ankle Type of injury: Other (onset without provocation of pains in knees and ankles feeling c/w gout.). No: Fall, Twist Timing - onset: How many days ago (2-3) Timing - details: Gradual onset, Still present Improved by: Meds (had some colchicine at home he took without improvement.) Associated symptoms: No: Weakness, Numbness Similar symptoms before: Diagnosis (gout) Review of Systems Constitutional: denies: Fever, Chills Skin: denies: Rash, Lesions Musculoskeletal: denies: Back pain PD PAST MEDICAL HISTORY - Past Medical History Past Medical History: Yes Cardiovascular: Hypertension, High cholesterol Respiratory: Sleep apnea, CPAP use Neuro: None Endocrine/Autoimmune: Type 2 diabetes GI: GERD : None HEENT: None Psych: None Musculoskeletal: Gout Derm: None - Past Surgical History Past Surgical History: Yes Ortho: ACL reconstruction - Present Medications Home Medications: Ambulatory Orders Medication Instructions Recorded Confirmed Metformin HCl 1,000 mg PO BID 06/06/15 10/25/23 Atorvastatin [Lipitor] 10 mg ORAL DAILY 11/09/18 10/25/23 Fexofenadine HCl 180 mg PO DAILY 11/09/18 10/25/23 Pantoprazole [Protonix] 40 mg PO DAILY 11/09/18 10/25/23 Cetirizine HCl/Pseudoephedrine 1 each PO BID PRN #30 tab.er.12h 12/28/19 10/25/23 [Zyrtec-D Tablet] Lisinopril/Hydrochlorothiazide 1 tab ORAL DAILY 12/03/20 10/25/23 [Zestoretic 10-12.5 mg Tablet] Aspirin EC [Ecotrin] 81 mg PO DAILY 06/12/21 10/25/23 Cetirizine HCl/Pseudoephedrine 1 each PO BID PRN #30 ea 06/12/21 10/25/23 [Zyrtec-D Tablet] Dulaglutide [Trulicity] 1.5 mg SQ ONCE 06/12/21 10/25/23 Indomethacin [Indocin] 25 mg ORAL DAILY 06/12/21 10/25/23 Propranolol [Inderal] 10 mg PO BID 06/12/21 10/25/23 Colchicine [Colcrys] 0.6 mg PO DAILY 06/13/21 10/25/23 Cetirizine HCl/Pseudoephedrine 1 each PO BID PRN #30 ea 11/15/21 10/25/23 [Zyrtec-D Tablet] Ondansetron Odt [Zofran] 4 mg TL Q6H PRN #10 tablet 10/25/23 Oxycodone HCl/Acetaminophen 1 each PO Q6H PRN #15 tablet 10/25/23 [Percocet 5-325 mg Tablet] Spironolactone [Aldactone] 25 mg PO DAILY 10/25/23 10/25/23 dexAMETHasone [Decadron] 4 mg PO DAILY #7 tablet 10/25/23 hydroCHLOROthiazide [Hydrodiuril] 25 mg PO DAILY 10/25/23 10/25/23 - Allergies Allergies/Adverse Reactions: Allergies Allergy/AdvReac Type Severity Reaction Status Date / Time morphine AdvReac Itching Verified 10/25/23 10:49 - Social History Does the pt smoke?: No Smoking Status: Never smoker Does the pt drink ETOH?: No Does the pt have substance abuse?: No - Immunizations Immunizations are current?: Yes - POLST Patient has POLST: No PD ED PE NORMAL - Vitals Vital signs reviewed: Yes - General General: Alert and oriented X 3, Well developed/nourished, Other (appears in pain with knee and ankle movmeents. ) Results - Vitals Vitals: Oxygen O2 Source Room air PD Medical Decision Making - ED course Complexity details: considered differential (he states pains feel like prior gout. No recent URI nor flu like illness. No apparent change in diet to provoke the flare. He appears well otherwise. Can treat as gout. ), d/w patient Departure - Departure Disposition: 01 Home, Self Care Clinical Impression: Polyarthralgia, Gout flare Condition: Stable Record reviewed to determine appropriate education?: Yes Prescriptions: dexAMETHasone [Decadron] 4 mg PO DAILY #7 tablet Oxycodone HCl/Acetaminophen [Percocet 5-325 mg Tablet] 1 each PO Q6H PRN #15 tablet PRN Reason: pain Ondansetron Odt [Zofran] 4 mg TL Q6H PRN #10 tablet PRN Reason: Nausea / Vomiting Comments: You could continue with the colchicine perhaps just twice daily along with some food and antacids to help your stomach. Alternatively switch to NSAID type medicine such as naproxen or ibuprofen. Additionally we can go with a steroid L anti-inflammatory. Decadron 4 mg tablet daily for the next week. We did give you a starter dose here. For pain, I would suggest adding in Tylenol 500 to 650 mg every 4-6 hours regularly. This should be less bothersome on your stomach but still take it with food. Alternatively oxycodone/acetaminophen if needed for worse pains. Recheck if not improving well over the next few days. I sent your prescriptions to the [facility] pharmacy here in [place] at your request. I am prescribing a short course of narcotic pain medication for you. These are potentially dangerous and addictive medications that should be used carefully. These medications may constipate you. Take an [id number] stool softener such as docusate twice daily with plenty of water while taking these medications. If you go 24 hours without a bowel movement, take [id number] MiraLAX, per package instructions. Do not drink or drive while taking these medications. If you received narcotic or sedating medications while in the emergency department do not drive for 24 hours. Store this medication in a safe, secure place and out of reach of children. It is a violation of federal law to give or sell this medication to another person or to use in a manner other than prescribed. The ED will not refill narcotic prescriptions, including prescriptions lost or stolen. You can dispose of unwanted medications at the [facility]'s office or at several pharmacies such as [facility]. Forms: PCP List Discharge Date/Time: 10/25/23 11:43
[2023-10-25] MEDS ORDERED: dexAMETHasone 4 MG TABLET PO STA (11:08)
[2023-10-25] MEDS ORDERED: NAPROXEN 250 MG TABLET PO STA (11:08)
[2023-10-25] MEDS ORDERED: ACETAMINOPHEN 325 MG TABLET PO STA (11:08)
[2023-10-25 11:51] VITALS: BP 133/72; O2SAT 100
== END 2023-10-25 11:43 | disposition home or self-care (01) ==
LOC: ED 10:30
DX: M10.9 Gout, unspecified (principal); E11.9 Type 2 diabetes mellitus without complications; Z79.84 Long term (current) use of oral hypoglycemic drugs; I10 Essential (primary) hypertension
CPT/HCPCS: 99283; 99284; A9270; J8540

== ENCOUNTER 2023-11-11 12:26 | Emergency (ER) | payer OTHER ==
--- NOTE | 2023-11-11 13:49 | ED Physician Documentation ---
History of Present Illness - Stated complaint Stated Complaint: C+ VOMITING/SOA/CONGESTION - Chief complaint Chief Complaint: General - Additonal information Additional information: 53-year-old male presents with cough, chest congestion, fatigue and nausea. He states he tested positive for COVID couple weeks ago, he took paxlovid, symptoms seem to get better for few days and he tested negative for a while and then his symptoms recurred and he is again testing positive. He has had ongoing cough, intermittent fever, chest congestion, nausea. He has not been taking any medication for this issue. His partner has similar symptoms. PD PAST MEDICAL HISTORY - Past Medical History Past Medical History: Yes Cardiovascular: Hypertension, High cholesterol Respiratory: Sleep apnea, CPAP use Neuro: None Endocrine/Autoimmune: Type 2 diabetes GI: GERD : None HEENT: None Psych: None Musculoskeletal: Gout Derm: None - Past Surgical History Past Surgical History: Yes Ortho: ACL reconstruction - Present Medications Home Medications: Ambulatory Orders Medication Instructions Recorded Confirmed Metformin HCl 1,000 mg PO BID 06/06/15 10/25/23 Atorvastatin [Lipitor] 10 mg ORAL DAILY 11/09/18 10/25/23 Fexofenadine HCl 180 mg PO DAILY 11/09/18 10/25/23 Pantoprazole [Protonix] 40 mg PO DAILY 11/09/18 10/25/23 Cetirizine HCl/Pseudoephedrine 1 each PO BID PRN #30 tab.er.12h 12/28/19 10/25/23 [Zyrtec-D Tablet] Lisinopril/Hydrochlorothiazide 1 tab ORAL DAILY 12/03/20 10/25/23 [Zestoretic 10-12.5 mg Tablet] Aspirin EC [Ecotrin] 81 mg PO DAILY 06/12/21 10/25/23 Cetirizine HCl/Pseudoephedrine 1 each PO BID PRN #30 ea 06/12/21 10/25/23 [Zyrtec-D Tablet] Dulaglutide [Trulicity] 1.5 mg SQ ONCE 06/12/21 10/25/23 Indomethacin [Indocin] 25 mg ORAL DAILY 06/12/21 10/25/23 Propranolol [Inderal] 10 mg PO BID 06/12/21 10/25/23 Colchicine [Colcrys] 0.6 mg PO DAILY 06/13/21 10/25/23 Cetirizine HCl/Pseudoephedrine 1 each PO BID PRN #30 ea 11/15/21 10/25/23 [Zyrtec-D Tablet] Ondansetron Odt [Zofran] 4 mg TL Q6H PRN #10 tablet 10/25/23 Oxycodone HCl/Acetaminophen 1 each PO Q6H PRN #15 tablet 10/25/23 [Percocet 5-325 mg Tablet] Spironolactone [Aldactone] 25 mg PO DAILY 10/25/23 10/25/23 dexAMETHasone [Decadron] 4 mg PO DAILY #7 tablet 10/25/23 hydroCHLOROthiazide [Hydrodiuril] 25 mg PO DAILY 10/25/23 10/25/23 Albuterol Sulfate [Proair 90 mcg IH Q4H PRN #1 each 11/11/23 Respiclick] Azithromycin [Zithromax] 0 mg PO DAILY #6 tablet 11/11/23 Codeine Phosphate/Guaifenesin 5 - 10 ml PO Q4H PRN #118 ml 11/11/23 [Codeine-Guaifen 10-100 mg/5 ml] Ondansetron Odt [Zofran] 4 mg TL Q6H PRN #10 tablet 11/11/23 - Allergies Allergies/Adverse Reactions: Allergies Allergy/AdvReac Type Severity Reaction Status Date / Time morphine AdvReac Itching Verified 11/11/23 12:33 - Social History Does the pt smoke?: No Smoking Status: Never smoker Does the pt drink ETOH?: No Does the pt have substance abuse?: No - Immunizations Immunizations are current?: Yes - POLST Patient has POLST: No PD ED PE NORMAL - Vitals Vital signs reviewed: Yes - General General: Alert and oriented X 3, No acute distress, Well developed/nourished - HEENT HEENT: Atraumatic, Moist mucous membranes - Cardiac Cardiac: RRR, No murmur - Respiratory Respiratory: No respiratory distress, Clear bilaterally - Abdomen Abdomen: Normal bowel sounds, Soft Results - Vitals Vitals: Vital Signs - 24 hr 11/11/23 11/11/23 12:33 14:17 Temperature 36.8 C 102.2 C H Heart Rate 100 86 Respiratory 16 20 Rate Blood Pressure 139/90 H 122/86 H O2 Saturation 99 98 Oxygen O2 Source Room air - Rads (name of study) No standard instances Relevant Findings:: Final report received PD Medical Decision Making - ED course Complexity details: reviewed results, re-evaluated patient, considered differential, d/w patient ED course: 53-year-old male presented with positive home COVID test. The patient actually had a positive test a few weeks ago, but better and then symptoms seem to recur and he had a recurrent positive test. It is unclear if this is a new infection or prolonged infection. He continues to feel unwell with viral type symptoms. I did obtain an x-ray as he felt like he was having increasing chest symptoms and x-ray reveals a possible Atypical pneumonia. Patient is oxygenating well here on room air, initially not febrile but did develop a fever while here other vitals were stable. Advised patient that treatment is largely supportive, I will give a course of azithromycin given this atypical pneumonia seen on the chest x-ray though this may be secondary to his COVID. Advised ibuprofen and Tylenol and I have given cough medicine and antibiotics to use as needed. I discussed return precautions if new or worsening symptoms. Departure - Departure Disposition: 01 Home, Self Care Clinical Impression: COVID-19, Atypical pneumonia Condition: Good Instructions: ED Viral Syndrome Prescriptions: Codeine Phosphate/Guaifenesin [Codeine-Guaifen 10-100 mg/5 ml] 5 - 10 ml PO Q4H PRN #118 ml PRN Reason: Cough Albuterol Sulfate [Proair Respiclick] 90 mcg IH Q4H PRN #1 each PRN Reason: Wheezing Azithromycin [Zithromax] 0 mg PO DAILY #6 tablet Ondansetron Odt [Zofran] 4 mg TL Q6H PRN #10 tablet PRN Reason: Nausea / Vomiting Comments: Your x-ray does show a possible mild pneumonia. I am going to give you antibiotics for this and have also prescribed some cough medication and nausea medication. Please continue as needed ibuprofen and Tylenol for body aches and fever. I would anticipate improvement in the next week or so, if you feel like you are worsening, return for recheck or see the walk-in clinic. Forms: PCP List
--- NOTE | 2023-11-11 14:13 | XRAY Report ---
PROCEDURE: Chest 1V INDICATIONS: chest pain TECHNIQUE: One view of the chest was acquired. COMPARISON: 06/12/2021 FINDINGS: Surgical changes and devices: None. Lungs and pleura: Slightly low lung volumes. Mildly prominent interstitium. No airspace consolidatio n or pleural effusions. Mediastinum: Heart size within normal limits Bones and chest wall: No suspicious bony lesions. Overlying soft tissues appear unremarkable. IMPRESSION: Mildly prominent interstitium could represent edema versus atypical infection. No airspace consolidat ion or pleural effusion on this single view portable radiograph. Reviewed by: Venkata Valencia MD on 11/11/2023 2:12 PM PST Approved by: Venkata Valencia MD on 11/11/2023 2:12 PM PST Station ID: [id number]
[2023-11-11 14:21] VITALS: BP 122/86; O2SAT 98
== END 2023-11-11 14:29 | disposition home or self-care (01) ==
LOC: ED 12:26
DX: U07.1 COVID-19 (principal); J18.9 Pneumonia, unspecified organism; I10 Essential (primary) hypertension; E11.9 Type 2 diabetes mellitus without complications; Z79.85 Long-term (current) use of injectable non-insulin antidiabetic drugs
CPT/HCPCS: 99283

== ENCOUNTER 2023-11-19 14:08 | Emergency (ER) | payer OTHER ==
[2023-11-19 14:34] LABS: BASOPHILS % (AUTO) 0.5 %; EOSINOPHILS # (AUTO) 0.1 10^3/uL (0.0-0.7); EOSINOPHILS % (AUTO) 1.5 %; HGB - HEMOGLOBIN 12.9 g/dL (14.0-18.0); LYMPHOCYTES # (AUTO) 1.6 10^3/uL (1.5-3.5); LYMPHOCYTES % (AUTO) 23.7 %; MEAN CORPUSCULAR HEMOGLOBIN 26.3 pg (27.0-31.0); MEAN CORPUSCULAR HGB CONC 33.1 g/dL (32.0-36.0); MEAN CORPUSCULAR VOLUME 79.4 fL (80.0-94.0); MEAN PLATELET VOLUME 10.5 fL (7.4-11.4); MONOCYTES # (AUTO) 0.5 10^3/uL (0.0-1.0); MONOCYTES % (AUTO) 7.1 %; NEUTROPHILS # (AUTO) 4.4 10^3/uL (1.5-6.6); NEUTROPHILS % (AUTO) 66.9 %; PLT - PLATELET COUNT 283 10^3/uL (130-450); RED BLOOD COUNT 4.91 10^6/uL (4.70-6.10); RED CELL DISTRIBUTION WIDTH 14.6 % (12.0-15.0); WHITE BLOOD COUNT 6.6 x10^3/uL (4.8-10.8)
[2023-11-19 14:48] LABS: ALBUMIN 4.6 g/dL (3.2-5.5); ALBUMIN/GLOBULIN RATIO 1.4 (1.0-2.2); BILIRUBIN,TOTAL 0.4 mg/dL (0.2-1.0); CALCIUM 9.6 mg/dL (8.5-10.3); CREATININE 1.7 mg/dL (0.6-1.3); MAGNESIUM 1.4 mg/dL (1.7-2.3); PHOSPHORUS 3.6 mg/dL (2.5-5.0); POTASSIUM 5.8 mmol/L (3.5-4.5); TOTAL PROTEIN 7.8 g/dL (6.4-8.9)
--- NOTE | 2023-11-19 17:15 | ED Physician Documentation ---
History of Present Illness - Stated complaint Stated Complaint: HIGH POTASSIUM - Chief complaint Chief Complaint: General - History obtained from History obtained from: Patient - Additonal information Additional information: 53-year-old gentleman with history of hypertension and recent bout of COVID and pneumonia. He had a follow-up appointment with his doctor today and they checked labs and noted his potassium to be in the high 5 range and was referred here for further evaluation and treatment. He feels jittery but otherwise okay. No specific complaints. Urination has been normal. Not short of breath. PD PAST MEDICAL HISTORY - Past Medical History Past Medical History: Yes Cardiovascular: Hypertension, High cholesterol Respiratory: Sleep apnea, CPAP use Neuro: None Endocrine/Autoimmune: Type 2 diabetes GI: GERD : None HEENT: None Psych: None Musculoskeletal: Gout Derm: None - Past Surgical History Past Surgical History: Yes Ortho: ACL reconstruction - Present Medications Home Medications: Ambulatory Orders Medication Instructions Recorded Confirmed Metformin HCl 1,000 mg PO BID 06/06/15 10/25/23 Atorvastatin [Lipitor] 10 mg ORAL DAILY 11/09/18 10/25/23 Fexofenadine HCl 180 mg PO DAILY 11/09/18 10/25/23 Pantoprazole [Protonix] 40 mg PO DAILY 11/09/18 10/25/23 Cetirizine HCl/Pseudoephedrine 1 each PO BID PRN #30 tab.er.12h 12/28/1910/12 [Zyrtec-D Tablet] Lisinopril/Hydrochlorothiazide 1 tab ORAL DAILY 12/03/20 10/25/23 [Zestoretic 10-12.5 mg Tablet] Aspirin EC [Ecotrin] 81 mg PO DAILY 06/12/21 10/25/23 Cetirizine HCl/Pseudoephedrine 1 each PO BID PRN #30 ea 06/12/21 10/25/23 [Zyrtec-D Tablet] Dulaglutide [Trulicity] 1.5 mg SQ ONCE 06/12/21 10/25/23 Indomethacin [Indocin] 25 mg ORAL DAILY 06/12/21 10/25/23 Propranolol [Inderal] 10 mg PO BID 06/12/21 10/25/23 Colchicine [Colcrys] 0.6 mg PO DAILY 06/13/21 10/25/23 Cetirizine HCl/Pseudoephedrine 1 each PO BID PRN #30 ea 11/15/21 10/25/23 [Zyrtec-D Tablet] Ondansetron Odt [Zofran] 4 mg TL Q6H PRN #10 tablet 10/25/23 Oxycodone HCl/Acetaminophen 1 each PO Q6H PRN #15 tablet 10/25/23 [Percocet 5-325 mg Tablet] Spironolactone [Aldactone] 25 mg PO DAILY 10/25/23 10/25/23 dexAMETHasone [Decadron] 4 mg PO DAILY #7 tablet 10/25/23 hydroCHLOROthiazide [Hydrodiuril] 25 mg PO DAILY 10/25/23 10/25/23 Albuterol Sulfate [Proair 90 mcg IH Q4H PRN #1 each 11/11/23 [place]] Azithromycin [Zithromax] 0 mg PO DAILY #6 tablet 11/11/23 Codeine Phosphate/Guaifenesin 5 - 10 ml PO Q4H PRN #118 ml 11/11/23 [Codeine-Guaifen 10-100 mg/5 ml] Ondansetron Odt [Zofran] 4 mg TL Q6H PRN #10 tablet 11/11/23 - Allergies Allergies/Adverse Reactions: Allergies Allergy/AdvReac Type Severity Reaction Status Date / Time morphine AdvReac Itching Verified 11/11/23 12:33 - Social History Does the pt smoke?: No Smoking Status: Never smoker Does the pt drink ETOH?: No Does the pt have substance abuse?: No - Immunizations Immunizations are current?: Yes - POLST Patient has POLST: No PD ED PE NORMAL - Vitals Vital signs reviewed: Yes - General General: Alert and oriented X 3, No acute distress - Neck Neck: Supple, no meningeal sign, No bony TTP - Cardiac Cardiac: RRR, No murmur - Respiratory Respiratory: No respiratory distress, Clear bilaterally - Abdomen Abdomen: Non tender - Neuro Neuro: Alert and oriented X 3 Results - Vitals Vitals: Vital Signs - 24 hr 11/19/23 11/19/23 11/19/23 14:40 17:36 19:00 Temperature 36.7 C Heart Rate 85 87 75 Respiratory 18 17 18 Rate Blood Pressure 130/81 H 115/77 O2 Saturation 97 98 98 Oxygen O2 Source Room air - EKG (time done) 1446 EKG releavant findings:: EKG personally interpreted by author of this note. Relevant findings are: Rate: Rate (enter#) (78) Rhythm: NSR [place]: Normal Intervals: Other (lafb) Ischemia: Non specific changes. No: ST elevation c/w ischemia, Hyperacute T waves Computer interpretation: Agree with computer - Labs Labs: Laboratory Tests 11/19/23 11/19/23 11/19/23 14:27 14:27 19:32 WBC 6.6 RBC 4.91 Hgb 12.9 L Hct 39.0 L MCV 79.4 L MCH 26.3 L MCHC 33.1 RDW 14.6 Plt Count 283 MPV 10.5 Neut # (Auto) 4.4 Lymph # (Auto) 1.6 [place] # (Auto) 0.5 Eos # (Auto) 0.1 Baso # (Auto) 0.0 Absolute Nucleated RBC 0.00 Nucleated RBC % 0.0 Sodium 130 L 130 L Potassium 5.8 H 6.1 H* Chloride 97 L 101 Carbon Dioxide 24 24 Anion Gap 9.0 5.0 L BUN 27 H 24 H Creatinine 1.7 H 1.3 Estimated GFR (MDRD) 42 L 58 L Glucose 231 H 191 H Calcium 9.6 8.6 Phosphorus 3.6 Magnesium 1.4 L Total Bilirubin 0.4 AST 24 ALT 31 Alkaline Phosphatase 63 Total Protein 7.8 Albumin 4.6 Globulin 3.2 Albumin/Globulin Ratio 1.4 11/19/23 21:34 WBC RBC Hgb Hct MCV MCH MCHC RDW Plt Count MPV Neut # (Auto) Lymph # (Auto) [place] # (Auto) Eos # (Auto) Baso # (Auto) Absolute Nucleated RBC Nucleated RBC % Sodium Potassium 5.5 H Chloride Carbon Dioxide Anion Gap BUN Creatinine Estimated GFR (MDRD) Glucose Calcium Phosphorus Magnesium Total Bilirubin AST ALT Alkaline Phosphatase Total Protein Albumin Globulin Albumin/Globulin Ratio PD Medical Decision Making - ED course ED course: 53-year-old gentleman with prerenal azotemia with modest hyperkalemia. He was advised to stop Aldactone and we will give 2 L of IV fluids and recheck his BMP. On subsequent recheck of his BMP his potassium actually went up a bit and he was given a 3rd L of IV fluids and a dose of Lokelma after which his potassium was 5.5. He appeared well and had no arrhythmias. Will give him a second dose of Lokelma prior to leaving and discussed with him that he probably should get a BMP checked tomorrow whether it be here or at the [facility] and he voices understanding. He also understands the need to stop Aldactone. Departure - Departure Disposition: 01 Home, Self Care Clinical Impression: Hyperkalemia Condition: Stable Record reviewed to determine appropriate education?: Yes Instructions: Diet Low Potassium Dc Comments: Your potassium when you checked and was 5.8 and actually trended up to 6.1. After total of 3 L of fluids and 1 dose of Lokelma it was down to 5.5. This still on the high side but not dangerous. I am giving you a second dose of Lokelma before you leave and you probably do need to get a recheck tomorrow either at the [facility] or here. [place] you [place] stop your spironolactone. Drink plenty of water, and also note the low potassium diet instructions attached. Forms: PCP List
[2023-11-19] MEDS: SODIUM CHLORIDE 0.9% 1,000 ML IV STA ×3 (17:27→20:14)
[2023-11-19 19:56] LABS: CALCIUM 8.6 mg/dL (8.5-10.3); CREATININE 1.3 mg/dL (0.6-1.3); POTASSIUM 6.1 mmol/L (3.5-4.5)
[2023-11-19] MEDS: SODIUM ZIRCONIUM CYCLOSILICATE 5 GM PACKET PO STA (20:14)
[2023-11-19 22:00] VITALS: BP 130/99; O2SAT 96
[2023-11-19] MEDS: SODIUM ZIRCONIUM CYCLOSILICATE 5 GM PACKET PO SCH (22:08)
== END 2023-11-19 22:17 | disposition home or self-care (01) ==
LOC: ED 14:08
DX: E87.5 Hyperkalemia (principal); I10 Essential (primary) hypertension
CPT/HCPCS: 36415; 80048; 80053; 83735; 84100; 84132; 85025; 93005; 96360; 96361; 99283

== ENCOUNTER 2023-12-06 16:06 | Emergency (ER) | payer OTHER ==
[2023-12-06 16:41] LABS: RAPID STREP SCREEN Negative (Negative)
--- NOTE | 2023-12-06 17:01 | ED Physician Documentation ---
PD HPI URI - Stated complaint Stated Complaint: SOA/SORE THROAT - Chief complaint Chief Complaint: Resp - History obtained from History obtained from: Patient - Additional information Additional information: Patient is a 53-year-old male presenting for evaluation of sinus and nasal congestion for the past 2 weeks along with left-sided ear pain and ear fullness bilaterally. Reports cough. Chest x-ray which I reviewed is negative for consolidation or pneumonia. Respiratory swab is pending. Discussed that his symptoms could be related to a viral infection as we are seeing numerous viruses this time of the year. However he has reported sinus congestion and ear pain for over a week. Thus I do feel a course of antibiotics is Reasonable. Patient is agreeable to this plan. Understands plan for antibiotic treatment as well as continued supportive care. Understands concerning symptoms to return for. PD PAST MEDICAL HISTORY - Past Medical History Cardiovascular: Hypertension, High cholesterol Respiratory: Sleep apnea, CPAP use Neuro: None Endocrine/Autoimmune: Type 2 diabetes GI: GERD : None HEENT: None Psych: None Musculoskeletal: Gout Derm: None - Past Surgical History Past Surgical History: Yes Ortho: ACL reconstruction - Present Medications Home Medications: Ambulatory Orders Medication Instructions Recorded Confirmed Metformin HCl 1,000 mg PO BID 06/06/15 10/25/23 Atorvastatin [Lipitor] 10 mg ORAL DAILY 11/09/18 10/25/23 Fexofenadine HCl 180 mg PO DAILY 11/09/18 10/25/23 Pantoprazole [Protonix] 40 mg PO DAILY 11/09/18 10/25/23 Cetirizine HCl/Pseudoephedrine 1 each PO BID PRN #30 tab.er.12h 12/28/19 10/25/23 [Zyrtec-D Tablet] Lisinopril/Hydrochlorothiazide 1 tab ORAL DAILY 12/03/20 10/25/23 [Zestoretic 10-12.5 mg Tablet] Aspirin EC [Ecotrin] 81 mg PO DAILY 06/12/21 10/25/23 Cetirizine HCl/Pseudoephedrine 1 each PO BID PRN #30 ea 06/12/21 10/25/23 [Zyrtec-D Tablet] Dulaglutide [Trulicity] 1.5 mg SQ ONCE 06/12/21 10/25/23 Indomethacin [Indocin] 25 mg ORAL DAILY 06/12/21 10/25/23 Propranolol [Inderal] 10 mg PO BID 06/12/21 10/25/23 Colchicine [Colcrys] 0.6 mg PO DAILY 06/13/21 10/25/23 Cetirizine HCl/Pseudoephedrine 1 each PO BID PRN #30 ea 11/15/21 10/25/23 [Zyrtec-D Tablet] Ondansetron Odt [Zofran] 4 mg TL Q6H PRN #10 tablet 10/25/23 Oxycodone HCl/Acetaminophen 1 each PO Q6H PRN #15 tablet 10/25/23 [Percocet 5-325 mg Tablet] Spironolactone [Aldactone] 25 mg PO DAILY 10/25/23 10/25/23 dexAMETHasone [Decadron] 4 mg PO DAILY #7 tablet 10/25/23 hydroCHLOROthiazide [Hydrodiuril] 25 mg PO DAILY 10/25/23 10/25/23 Albuterol Sulfate [Proair 90 mcg IH Q4H PRN #1 each 11/11/23 Respiclick] Azithromycin [Zithromax] 0 mg PO DAILY #6 tablet 11/11/23 Codeine Phosphate/Guaifenesin 5 - 10 ml PO Q4H PRN #118 ml 11/11/23 [Codeine-Guaifen 10-100 mg/5 ml] Ondansetron Odt [Zofran] 4 mg TL Q6H PRN #10 tablet 11/11/23 Amox/Clav 875/125 [Augmentin] 1 each PO Q12H #14 tablet 12/06/23 Fluticasone [Flonase] 1 sprays SOLOMON BID PRN #16 gm 12/06/23 Sodium Chloride [Saline Nasal 1 - 2 spr NS Q3HR PRN #88 ml 12/06/23 [place]] - Allergies Allergies/Adverse Reactions: Allergies Allergy/AdvReac Type Severity Reaction Status Date / Time morphine AdvReac Itching Verified 12/06/23 16:13 - Social History Does the pt smoke?: No Smoking Status: Never smoker Does the pt drink ETOH?: No Does the pt have substance abuse?: No - Immunizations Immunizations are current?: Yes - POLST Patient has POLST: No Results - Vitals Vitals: Vital Signs - 24 hr 01/25/24 01/25/24 16:07 17:09 Temperature 36.9 C 36.0 C L Heart Rate 86 81 Respiratory 16 18 Rate Blood Pressure 152/102 H 151/116 H O2 Saturation 98 97 Oxygen O2 Source Room air - Labs Labs: Laboratory Tests 12/06/23 12/06/23 16:08 16:08 Nasal Adenovirus (PCR) NOT DETECTED Nasal B. parapertussis DNA (PCR) NOT DETECTED Nasal Coronavir 229E PCR NOT DETECTED Nasal Coronavir HKU1 PCR NOT DETECTED Nasal Coronavir NL63 PCR NOT DETECTED Nasal Coronavir OC43 PCR NOT DETECTED Nasal Enterovir/Rhinovir PCR NOT DETECTED Nasal Influenza B PCR NOT DETECTED Nasal Influenza A PCR NOT DETECTED Nasal Parainfluen 1 PCR NOT DETECTED Nasal Parainfluen 2 PCR NOT DETECTED Nasal Parainfluen 3 PCR NOT DETECTED Nasal Parainfluen 4 PCR NOT DETECTED Nasal RSV (PCR) DETECTED A Nasal B.pertussis DNA PCR NOT DETECTED Nasal C.pneumoniae (PCR) NOT DETECTED [place] Human Metapneumo PCR NOT DETECTED Nasal M.pneumoniae (PCR) NOT DETECTED Nasal SARS-CoV-2 (PCR) NOT DETECTED Group A Strep Rapid Negative Departure - Departure Disposition: 01 Home, Self Care Clinical Impression: Sinusitis, Left otitis media Condition: Stable Instructions: ED Otitis Media Acute Adult, ED Sinusitis Abx Tx Prescriptions: Sodium Chloride [Saline Nasal [place]] 1 - 2 spr NS Q3HR PRN #88 ml PRN Reason: Nasal Congestion Amox/Clav 875/125 [Augmentin] 1 each PO Q12H #14 tablet Fluticasone [Flonase] 1 sprays SOLOMON BID PRN #16 gm PRN Reason: Nasal Congestion Comments: Your strep test is negative. You do have symptoms of sinusitis and an ear infection. Given the duration of your symptoms I do think it is appropriate to trial a course of antibiotics as your symptoms have not improved on their own as we would expect with a viral illness. Your chest x-ray which I reviewed does not show signs of clear pneumonia but I will notify you if the radiologist sees any significant discrepancies. I am sending a prescription for an antibiotic to [facility] in [place]. I will also send prescription for saline spray and Flonase which is a steroid spray to use in the nose to see if this helps with your congestion. Continue with staying hydrated as this will keep all of your mucus thin so it is easier to expel. Your respiratory panel is pending. This will check for COVID, influenza, RSV and a number of other common cold viruses. We will notify you if it is positive for COVID. Otherwise you can check the patient portal for your results. You should quarantine from others until you know your COVID result. Please continue with acetaminophen or ibuprofen as needed for fevers and body aches, plenty of fluids/hydration and rest. Return to the ER with any worsening symptoms such as difficulty breathing or vomiting. Forms: PCP List Discharge Date/Time: 12/06/23 17:10
[2023-12-06 17:14] VITALS: BP 151/116; O2SAT 97
[2023-12-06 17:21] LABS: B. PARAPERTUSSIS- RESP PCR PAN NOT DETECTED; B. PERTUSSIS- RESP PCR PANEL NOT DETECTED; C. PNEUMONIAE- RESP PCR PANEL NOT DETECTED; CORONAVIRUS 229E-RESP PCR NOT DETECTED; CORONAVIRUS HKU1-RESP PCR NOT DETECTED; CORONAVIRUS NL63-RESP PCR NOT DETECTED; CORONAVIRUS OC43-RESP PCR NOT DETECTED; HUMAN METAPNEUMOVIRUS NOT DETECTED; INFLUENZA A- RESP PCR PANEL NOT DETECTED; INFLUENZA B - RESP PCR PANEL NOT DETECTED; M. PNEUMONIAE- RESP PCR PANEL NOT DETECTED; PARAINFLUENZA VIRUS 1 NOT DETECTED; PARAINFLUENZA VIRUS 2 NOT DETECTED; PARAINFLUENZA VIRUS 3 NOT DETECTED; PARAINFLUENZA VIRUS 4 NOT DETECTED; RHINOVIRUS/ENTEROVIRUS NOT DETECTED; RSV- RESP PCR PANEL DETECTED; SARS-CoV-2 -RESP PCR PANEL NOT DETECTED
--- NOTE | 2023-12-06 17:31 | XRAY Report ---
PROCEDURE: Chest 1V INDICATIONS: COUGHING/CONGESTION/PNA TECHNIQUE: One view of the chest was acquired. COMPARISON: None FINDINGS: Surgical changes and devices: None. Lungs and pleura: No pleural effusions or pneumothorax. Lungs are clear. Mediastinum: Mediastinal contours appear normal. Heart size is normal. Bones and chest wall: No suspicious bony lesions. Overlying soft tissues appear unremarkable. IMPRESSION: No acute cardiopulmonary findings Reviewed by: Reggie Mclaughlin MD on 12/06/2023 4:29 PM [place] Approved by: Reggie Mclaughlin MD on 12/06/2023 4:29 PM [place] Station ID: [id number]
== END 2023-12-06 17:10 | disposition home or self-care (01) ==
LOC: ED 16:06
DX: J32.9 Chronic sinusitis, unspecified (principal); H66.92 Otitis media, unspecified, left ear
CPT/HCPCS: 87070; 87430; 87633; 99284

== ENCOUNTER 2024-03-28 18:36 | Emergency (ER) | payer OTHER ==
--- NOTE | 2024-03-28 18:48 | ED Physician Documentation ---
PD HPI LOWER EXT INJURY - Stated complaint Stated Complaint: L FOOT PX/GOUT - History obtained from History obtained from: Patient PD PAST MEDICAL HISTORY - Past Medical History Cardiovascular: Hypertension, High cholesterol Respiratory: Sleep apnea, CPAP use Neuro: None Endocrine/Autoimmune: Type 2 diabetes GI: GERD : None HEENT: None Psych: None Musculoskeletal: Gout Derm: None - Past Surgical History Past Surgical History: Yes Ortho: ACL reconstruction - Present Medications Home Medications: Ambulatory Orders Medication Instructions Recorded Confirmed Metformin HCl 1,000 mg PO BID 06/06/15 10/25/23 Atorvastatin [Lipitor] 10 mg ORAL DAILY 11/09/18 10/25/23 Fexofenadine HCl 180 mg PO DAILY 11/09/18 10/25/23 Pantoprazole [Protonix] 40 mg PO DAILY 11/09/18 10/25/23 Cetirizine HCl/Pseudoephedrine 1 each PO BID PRN #30 tab.er.12h 12/28/19 10/25/23 [Zyrtec-D Tablet] Lisinopril/Hydrochlorothiazide 1 tab ORAL DAILY 12/03/20 10/25/23 [Zestoretic 10-12.5 mg Tablet] Aspirin EC [Ecotrin] 81 mg PO DAILY 06/12/21 10/25/23 Cetirizine HCl/Pseudoephedrine 1 each PO BID PRN #30 ea 06/12/21 10/25/23 [Zyrtec-D Tablet] Dulaglutide [Trulicity] 1.5 mg SQ ONCE 06/12/21 10/25/23 Indomethacin [Indocin] 25 mg ORAL DAILY 06/12/21 10/25/23 Propranolol [Inderal] 10 mg PO BID 06/12/21 10/25/23 Colchicine [Colcrys] 0.6 mg PO DAILY 06/13/21 10/25/23 Cetirizine HCl/Pseudoephedrine 1 each PO BID PRN #30 ea 11/15/21 10/25/23 [Zyrtec-D Tablet] Ondansetron Odt [Zofran] 4 mg TL Q6H PRN #10 tablet 10/25/23 Oxycodone HCl/Acetaminophen 1 each PO Q6H PRN #15 tablet 10/25/23 [Percocet 5-325 mg Tablet] Spironolactone [Aldactone] 25 mg PO DAILY 10/25/23 10/25/23 dexAMETHasone [Decadron] 4 mg PO DAILY #7 tablet 10/25/23 hydroCHLOROthiazide [Hydrodiuril] 25 mg PO DAILY 10/25/23 10/25/23 Albuterol Sulfate [Proair 90 mcg IH Q4H PRN #1 each 11/11/23 Respiclick] Azithromycin [Zithromax] 0 mg PO DAILY #6 tablet 11/11/23 Codeine Phosphate/Guaifenesin 5 - 10 ml PO Q4H PRN #118 ml 11/11/23 [Codeine-Guaifen 10-100 mg/5 ml] Ondansetron Odt [Zofran] 4 mg TL Q6H PRN #10 tablet 11/11/23 Amox/Clav 875/125 [Augmentin] 1 each PO Q12H #14 tablet 12/06/23 Fluticasone [Flonase] 1 sprays SOLOMON BID PRN #16 gm 12/06/23 Sodium Chloride [Saline Nasal 1 - 2 spr NS Q3HR PRN #88 ml 12/06/23 [place]] - Allergies Allergies/Adverse Reactions: Allergies Allergy/AdvReac Type Severity Reaction Status Date / Time morphine AdvReac Itching Verified 12/06/23 16:13 - Social History Does the pt smoke?: No Smoking Status: Never smoker Does the pt drink ETOH?: No Does the pt have substance abuse?: No - Immunizations Immunizations are current?: Yes - POLST Patient has POLST: No Results - Vitals Vitals: Oxygen O2 Source Room air
[2024-03-28 18:56] VITALS: BP 137/88; O2SAT 98
--- NOTE | 2024-03-28 19:10 | ED Physician Documentation ---
History of Present Illness - Stated complaint Stated Complaint: L FOOT PX/GOUT - Chief complaint Chief Complaint: General - Additonal information Additional information: 54-year-old male with history of gout comes in for left foot pain. Patient has suffered from gout before he is currently on a gout medication right now but does not know what kind. Patient reports that when this has happened in the past he has had alleviation of his symptoms with steroids. No fevers or chills. No recent trauma. There is inflammation to the left ankle as well as the left first toe. PD PAST MEDICAL HISTORY - Past Medical History Cardiovascular: Hypertension, High cholesterol Respiratory: Sleep apnea, CPAP use Neuro: None Endocrine/Autoimmune: Type 2 diabetes GI: GERD : None HEENT: None Psych: None Musculoskeletal: Gout Derm: None - Past Surgical History Past Surgical History: Yes Ortho: ACL reconstruction - Present Medications Home Medications: Ambulatory Orders Medication Instructions Recorded Confirmed Metformin HCl 1,000 mg PO BID 06/06/15 10/25/23 Atorvastatin [Lipitor] 10 mg ORAL DAILY 11/09/18 10/25/23 Fexofenadine HCl 180 mg PO DAILY 11/09/18 10/25/23 Pantoprazole [Protonix] 40 mg PO DAILY 11/09/18 10/25/23 Cetirizine HCl/Pseudoephedrine 1 each PO BID PRN #30 tab.er.12h 12/28/19 10/25/23 [Zyrtec-D Tablet] Lisinopril/Hydrochlorothiazide 1 tab ORAL DAILY 12/03/20 10/25/23 [Zestoretic 10-12.5 mg Tablet] Aspirin EC [Ecotrin] 81 mg PO DAILY 06/12/21 10/25/23 Cetirizine HCl/Pseudoephedrine 1 each PO BID PRN #30 ea 06/12/21 10/25/23 [Zyrtec-D Tablet] Dulaglutide [Trulicity] 1.5 mg SQ ONCE 06/12/21 10/25/23 Indomethacin [Indocin] 25 mg ORAL DAILY 06/12/21 10/25/23 Propranolol [Inderal] 10 mg PO BID 06/12/21 10/25/23 Colchicine [Colcrys] 0.6 mg PO DAILY 06/13/21 10/25/23 Cetirizine HCl/Pseudoephedrine 1 each PO BID PRN #30 ea 11/15/21 10/25/23 [Zyrtec-D Tablet] Ondansetron Odt [Zofran] 4 mg TL Q6H PRN #10 tablet 10/25/23 Oxycodone HCl/Acetaminophen 1 each PO Q6H PRN #15 tablet 10/25/23 [Percocet 5-325 mg Tablet] Spironolactone [Aldactone] 25 mg PO DAILY 10/25/23 10/25/23 dexAMETHasone [Decadron] 4 mg PO DAILY #7 tablet 10/25/23 hydroCHLOROthiazide [Hydrodiuril] 25 mg PO DAILY 10/25/23 10/25/23 Albuterol Sulfate [Proair 90 mcg IH Q4H PRN #1 each 11/11/23 Respiclick] Azithromycin [Zithromax] 0 mg PO DAILY #6 tablet 11/11/23 Codeine Phosphate/Guaifenesin 5 - 10 ml PO Q4H PRN #118 ml 11/11/23 [Codeine-Guaifen 10-100 mg/5 ml] Ondansetron Odt [Zofran] 4 mg TL Q6H PRN #10 tablet 11/11/23 Amox/Clav 875/125 [Augmentin] 1 each PO Q12H #14 tablet 12/06/23 Fluticasone [Flonase] 1 sprays SOLOMON BID PRN #16 gm 12/06/23 Sodium Chloride [Saline Nasal 1 - 2 spr NS Q3HR PRN #88 ml 12/06/23 [place]] predniSONE [Deltasone] 50 mg PO DAILY 5 Days #12.5 tablet 03/28/24 - Allergies Allergies/Adverse Reactions: Allergies Allergy/AdvReac Type Severity Reaction Status Date / Time morphine AdvReac Itching Verified 03/28/24 18:56 - Social History Does the pt smoke?: No Smoking Status: Never smoker Does the pt drink ETOH?: No Does the pt have substance abuse?: No - Immunizations Immunizations are current?: Yes - POLST Patient has POLST: No PD ED PE NORMAL - Vitals Vital signs reviewed: Yes - Extremities Extremities: Other (left ankle swelling left first toe swelling without erythema or warmth) Results - Vitals Vitals: Oxygen O2 Source Room air PD Medical Decision Making - ED course ED course: 54-year-old male presents emergency department for left ankle pain. Patient says that this is history of gout he has been suffering from gout for some time now due to other chronic medical conditions that patient is suffering from. Patient says that he does take a Medication but does not remember the name of it he did take some colchicine at home but thinks that he does need some additional steroids to help with his gout flare. He has not had any fevers or chills making me less concerned or suspicious for possible septic arthritis or septic joint. Given that he has had history of this feels very similar to previous gout flares. I am prescribing a short course of short-acting opioid pain medication for this patient. I have reviewed the patients STAFF REGISTERED NURSE and no concerning findings were noted. I have discussed that the opioids are for short term therapy only, and will not be refilled from the ED. Patient told to follow-up with primary care provider outpatient all questions have been answered started on prednisone here in the emergency department and a prescription was sent to his preferred pharmacy strict ER return precautions given. Departure - Departure Disposition: 01 Home, Self Care Clinical Impression: Gout attack Instructions: Gout Attack Tx, Gout Eat Prevent, ED Diet Gout Prescriptions: predniSONE [Deltasone] 50 mg PO DAILY 5 Days #12.5 tablet Comments: Thank you for trusting us with your care it appears that you are experiencing a gout flare to multiple joints. We have given you the first dose of prednisone here in the emergency department you will take 55 mg a day for the next 4 days. You can restart your colchicine that you already have it sounds like you have already taken 1 tablet at home and you can take 1 additional 1 after about an hour and then 1 tablet a day until gout flare resolves. In regards to the prednisone make sure that you closely monitor your blood sugars in your diet stop taking prednisone your blood sugars are 250 please come back to the emergency department if you are getting any worse, worsening fevers or chills or any other concerning symptoms. Forms: PCP List Discharge Date/Time: 03/28/24 20:24
[2024-03-28] MEDS: oxyCODONE/ACET 5/325 Prepack 4 PO STA (20:06)
[2024-03-28] MEDS: predniSONE 5 MG TABLET PO ONE (20:07)
[2024-03-28] MEDS: predniSONE 20 MG TABLET PO STA (20:07)
== END 2024-03-28 20:24 | disposition home or self-care (01) ==
LOC: ED 18:36
DX: M10.9 Gout, unspecified (principal); I10 Essential (primary) hypertension; E78.00 Pure hypercholesterolemia, unspecified; E11.9 Type 2 diabetes mellitus without complications; Z79.84 Long term (current) use of oral hypoglycemic drugs; Z79.899 Other long term (current) drug therapy; Z79.82 Long term (current) use of aspirin; Z79.85 Long-term (current) use of injectable non-insulin antidiabetic drugs
CPT/HCPCS: 99283; J7512

== ENCOUNTER 2024-04-10 11:00 | Outpatient (CLI) | payer OTHER ==
[2024-04-10 18:23] LABS: BASOPHILS % (AUTO) 0.3 %; EOSINOPHILS # (AUTO) 0.1 10^3/uL (0.0-0.7); EOSINOPHILS % (AUTO) 0.4 %; HCT - HEMATOCRIT 38.9 % (42.0-52.0); LYMPHOCYTES # (AUTO) 1.1 10^3/uL (1.5-3.5); MEAN CORPUSCULAR HEMOGLOBIN 24.1 pg (27.0-31.0); MEAN CORPUSCULAR HGB CONC 30.8 g/dL (32.0-36.0); MEAN CORPUSCULAR VOLUME 78.1 fL (80.0-94.0); MEAN PLATELET VOLUME 11.2 fL (7.4-11.4); MONOCYTES # (AUTO) 0.9 10^3/uL (0.0-1.0); MONOCYTES % (AUTO) 6.6 %; NEUTROPHILS # (AUTO) 11.7 10^3/uL (1.5-6.6); NEUTROPHILS % (AUTO) 84.1 %; PLT - PLATELET COUNT 301 10^3/uL (130-450); RED BLOOD COUNT 4.98 10^6/uL (4.70-6.10); RED CELL DISTRIBUTION WIDTH 16.3 % (12.0-15.0); WHITE BLOOD COUNT 13.9 x10^3/uL (4.8-10.8)
[2024-04-10 18:38] LABS: CALCIUM 9.4 mg/dL (8.5-10.3); CREATININE 1.2 mg/dL (0.6-1.3); CRP - C-REACTIVE PROTEIN 1.4 mg/dL (<0.5); POTASSIUM 4.4 mmol/L (3.5-4.5); URIC ACID 4.2 mg/dL (4.4-7.6)
== END 2024-04-10 13:11 | disposition home or self-care (01) ==
LOC: LAB.N 11:00
PROVIDERS: ATTEND Physician Assistant Medical
DX: M10.9 Gout, unspecified (principal)
CPT/HCPCS: 36415; 80048; 84550; 85025; 86140

== ENCOUNTER 2024-05-20 14:56 | Emergency (ER) | payer OTHER ==
[2024-05-20 15:22] LABS: BILIRUBIN,URINE NEGATIVE (NEGATIVE); GLUCOSE, URINE (UA) NEGATIVE (NEGATIVE); KETONES,URINE (UA) 15 mg/dL (NEGATIVE); LEUKOCYTE ESTERASE, URINE NEGATIVE (NEGATIVE); NITRITE,URINE NEGATIVE (NEGATIVE); OCCULT BLOOD,URINE NEGATIVE (NEGATIVE); PH,URINE 5.5 PH (5.0-7.5); PROTEIN,URINE 100 mg/dL (NEGATIVE); UROBILINOGEN,URINE 0.2 (NORMAL) E.U./dL (NORMAL)
[2024-05-20 15:24] LABS: CLARITY,URINE HAZY (CLEAR)
[2024-05-20 15:29] LABS: BASOPHILS # (AUTO) 0.1 10^3/uL (0.0-0.1); BASOPHILS % (AUTO) 0.8 %; EOSINOPHILS # (AUTO) 0.3 10^3/uL (0.0-0.7); EOSINOPHILS % (AUTO) 5.5 %; HCT - HEMATOCRIT 32.7 % (42.0-52.0); HGB - HEMOGLOBIN 10.5 g/dL (14.0-18.0); LYMPHOCYTES # (AUTO) 1.8 10^3/uL (1.5-3.5); LYMPHOCYTES % (AUTO) 28.9 %; MEAN CORPUSCULAR HEMOGLOBIN 25.1 pg (27.0-31.0); MEAN CORPUSCULAR HGB CONC 32.1 g/dL (32.0-36.0); MEAN PLATELET VOLUME 9.9 fL (7.4-11.4); MONOCYTES # (AUTO) 0.5 10^3/uL (0.0-1.0); MONOCYTES % (AUTO) 7.4 %; NEUTROPHILS # (AUTO) 3.6 10^3/uL (1.5-6.6); NEUTROPHILS % (AUTO) 57.2 %; PLT - PLATELET COUNT 261 10^3/uL (130-450); RED BLOOD COUNT 4.19 10^6/uL (4.70-6.10); RED CELL DISTRIBUTION WIDTH 17.3 % (12.0-15.0); WHITE BLOOD COUNT 6.2 x10^3/uL (4.8-10.8)
[2024-05-20 15:31] LABS: BACTERIA,URINE None Seen /HPF (None Seen); MUCUS,URINE Few Strands; RBC,URINE 0-5 /HPF (0-5); SQUAMOUS EPITHELIAL CELL,UR NONE SEEN (<= Few); WBC,URINE 0-3 /HPF (0-3)
[2024-05-20 15:46] LABS: ALBUMIN 4.4 g/dL (3.2-5.5); ALBUMIN/GLOBULIN RATIO 1.4 (1.0-2.2); BILIRUBIN,TOTAL 0.3 mg/dL (0.2-1.0); CALCIUM 9.6 mg/dL (8.5-10.3); CREATININE 1.5 mg/dL (0.6-1.3); POTASSIUM 4.4 mmol/L (3.5-4.5); TOTAL PROTEIN 7.6 g/dL (6.4-8.9)
--- NOTE | 2024-05-20 16:34 | ED Physician Documentation ---
History of Present Illness - Stated complaint Stated Complaint: LOWER BACK PX, - Chief complaint Chief Complaint: Abd Pain - Additonal information Additional information: 54-year-old male with history of hypertension, hypercholesterolemia, sleep apnea, type 2 diabetes, chronic kidney disease presents emergency department for left flank pain. Patient said that he is worried about possible infection he has been having on and off left flank pain nothing exacerbates it nothing makes it better or worse says it comes and goes and has not taken anything for it. Patient says he is also worried about possible urinary retention but still has been voiding adequately no recent fevers or chills no nausea or vomiting PD PAST MEDICAL HISTORY - Past Medical History Cardiovascular: Hypertension, High cholesterol Respiratory: Sleep apnea, CPAP use Neuro: None Endocrine/Autoimmune: Type 2 diabetes GI: GERD : None HEENT: None Psych: None Musculoskeletal: Gout Derm: None - Past Surgical History Past Surgical History: Yes Ortho: ACL reconstruction - Present Medications Home Medications: Ambulatory Orders Medication Instructions Recorded Confirmed Metformin HCl 1,000 mg PO BID 06/06/15 05/20/24 Atorvastatin [Lipitor] 20 mg ORAL DAILY 11/09/18 05/20/24 Pantoprazole [Protonix] 40 mg PO DAILY 11/09/18 05/20/24 Dulaglutide [Trulicity] 1.5 mg SQ ONCE 06/12/21 05/20/24 Febuxostat 1 tab PO DAILY 05/20/24 05/20/24 Lisinopril [Zestril] 1 tab PO DAILY 05/20/24 05/20/24 NIFEdipine [Nifedipine ER] 1 tab PO DAILY 05/20/24 05/20/24 - Allergies Allergies/Adverse Reactions: Allergies Allergy/AdvReac Type Severity Reaction Status Date / Time morphine AdvReac Itching Verified 05/20/24 15:06 - Social History Does the pt smoke?: No Smoking Status: Never smoker Does the pt drink ETOH?: No Does the pt have substance abuse?: No - Immunizations Immunizations are current?: Yes - POLST Patient has POLST: No PD ED PE NORMAL - Vitals Vital signs reviewed: Yes - General General: Alert and oriented X 3, No acute distress, Well developed/nourished - HEENT HEENT: Atraumatic - Cardiac Cardiac: RRR - Respiratory Respiratory: No respiratory distress - Abdomen Abdomen: Normal bowel sounds, Soft, Non tender, No organomegaly - Back Back: No CVA TTP - Derm Derm: Normal color, Warm and dry, No rash - Psych Psych: Normal mood, Normal affect Results - Vitals Vitals: Oxygen O2 Source Room air - Labs Labs: Laboratory Tests 05/20/24 05/20/24 05/20/24 15:08 15:24 15:24 WBC 6.2 RBC 4.19 L Hgb 10.5 L Hct 32.7 L MCV 78.0 L MCH 25.1 L MCHC 32.1 RDW 17.3 H Plt Count 261 MPV 9.9 Neut # (Auto) 3.6 Lymph # (Auto) 1.8 [place] # (Auto) 0.5 Eos # (Auto) 0.3 Baso # (Auto) 0.1 Absolute Nucleated RBC 0.00 Nucleated RBC % 0.0 Sodium 136 Potassium 4.4 Chloride 100 L Carbon Dioxide 29 Anion Gap 7.0 BUN 19 Creatinine 1.5 H Estimated GFR (MDRD) 49 L Glucose 188 H Calcium 9.6 Total Bilirubin 0.3 AST 20 ALT 21 Alkaline Phosphatase 53 Total Protein 7.6 Albumin 4.4 Globulin 3.2 Albumin/Globulin Ratio 1.4 Lipase 44 Urine Color YELLOW Urine Clarity HAZY Urine pH 5.5 Ur Specific [place] >=1.030 H Urine Protein 100 H Urine Glucose (UA) NEGATIVE Urine Ketones 15 H Urine Occult Blood NEGATIVE Urine Nitrite NEGATIVE Urine Bilirubin NEGATIVE Urine Urobilinogen 0.2 (NORMAL) Ur Leukocyte Esterase NEGATIVE Urine RBC 0-5 Urine WBC 0-3 Ur Squamous Epith Cells NONE SEEN Urine Bacteria None Seen Urine Mucus Few Strands Ur Microscopic Review INDICATED Urine Culture Comments NOT INDICATED - Rads (name of study) CT KUB Relevant Findings:: Final report received, EMP independent interpretation of test, Other (Tiny punctate nonobstructing right renal stones no evidence of right hydronephrosis or acute inflammatory changes, colonic diverticulosis without diverticulitis, moderate hiatal hernia) PD Medical Decision Making - ED course ED course: 54-year-old male presents emergency department for left flank pain. Labs are complete for further evaluation patient was worried about possible worsening kidney failure creatinine 1.5, GFR 49, glucose 188. Patient says that he established with a business mail entry clerk in [place] and his last GFR was in the low 30s so this GFR the patient has significant improved. He was worried also about possible infection he has no leukocytosis mild microcytic anemia, hemoglobin 10.5, hematocrit 32.7. No electrolyte abnormalities. Urinalysis was complete for further evaluation and no leukocytes or nitrates no bacteria. CT KUB was complete for further evaluation incidentally patient appears to have some tiny punctate nonobstructing right renal stones. Unsure what is causing patient's left flank pain could be musculoskeletal but he is told to follow-up with primary care provider as I am not seeing any emergent occasions for this left flank pain at this point in time close alternate between Tylenol ibuprofen and to really limit his ibuprofen take to once a day if that. Also told to follow- up with his business mail entry clerk for further evaluation. All questions answered return precautions given patient safe for discharge. Departure - Departure Disposition: 01 Home, Self Care Clinical Impression: Renal calculi Instructions: Kidney Stones, Kidney Stones Prevent, ED Stone Renal W Colic Comments: Thank you for trusting us with your care we have checked your labs and you do not have any obvious signs of infection your kidney function appears to have improved in comparison to what you said it was your creatinine is 1.5 and your GFR is 49. Your urinalysis also does not show any obvious signs symptoms of infection continue to drink plenty of fluids and stay well-hydrated. I have attached the radiology report for your CT scan as we discussed there is tiny nonobstructing right kidney stones. Go home drink plenty of fluids and call your business mail entry clerk and let them know about today's ER visit. You can take Tylenol for any pain or discomfort. TECHNIQUE: A CT scan of the abdomen and pelvis was performed without the use of intravenous contrast. Images were recorded and evaluated at appropriate window settings. Reformats: coronal and sagittal. For radiation dose reduction, the following was used: automated exposure control, adjustment of mA and/or kV according to patient size. COMPARISON: None. FINDINGS: Image quality: Diagnostic. Lower chest: Lung bases are clear. Moderate hiatal hernia. Liver: No contour-deforming mass. Gallbladder: No radiopaque stones or wall thickening. Biliary tree: No intrahepatic or extrahepatic dilation, accounting for age. Spleen: No splenomegaly. Pancreas: No pancreatic ductal dilation. Adrenals: No adrenal nodule. Kidneys and ureters: A few tiny punctate nonobstructing right renal stones. No left-sided renal stones. No hydronephrosis on either side. Bilateral ureters are normal in course and caliber. No significant inflammatory changes. Stomach, bowel and peritoneum: No gastric or small bowel dilation. No abnormal wall thickening. No pathologic free fluid. Diverticulosis without evidence of diverticulitis. Normal appendix. Lymph nodes: No central or retroperitoneal adenopathy. Vessels: No infrarenal aortic aneurysm. Reproductive organs: Unremarkable. Bladder: Bladder wall thickness is normal, accounting for underdistention. No calcified bladder stones. Pelvic lymph nodes: No adenopathy by size criteria. Bones: No aggressive osseous abnormality. Other: No significant ventral or inguinal hernia. IMPRESSION: Tiny punctate nonobstructing right renal stones. No evidence for right hydronephrosis or acute inflammatory changes. Colonic diverticulosis without acute diverticulitis. Moderate hiatal hernia. Other nonacute findings as above. Forms: PCP List Discharge Date/Time: 05/20/24 18:49
--- NOTE | 2024-05-20 17:56 | CT Report ---
PROCEDURE: KUB INDICATIONS: left flank pain TECHNIQUE: A CT scan of the abdomen and pelvis was performed without the use of intravenous contrast. Images we re recorded and evaluated at appropriate window settings. Reformats: coronal and sagittal. For radiat ion dose reduction, the following was used: automated exposure control, adjustment of mA and/or kV ac cording to patient size. COMPARISON: None. FINDINGS: Image quality: Diagnostic. Lower chest: Lung bases are clear. Moderate hiatal hernia. Liver: No contour-deforming mass. Gallbladder: No radiopaque stones or wall thickening. Biliary tree: No intrahepatic or extrahepatic dilation, accounting for age. Spleen: No splenomegaly. Pancreas: No pancreatic ductal dilation. Adrenals: No adrenal nodule. Kidneys and ureters: A few tiny punctate nonobstructing right renal stones. No left-sided renal stone s. No hydronephrosis on either side. Bilateral ureters are normal in course and caliber. No significa nt inflammatory changes. Stomach, bowel and peritoneum: No gastric or small bowel dilation. No abnormal wall thickening. No pa thologic free fluid. Diverticulosis without evidence of diverticulitis. Normal appendix. Lymph nodes: No central or retroperitoneal adenopathy. Vessels: No infrarenal aortic aneurysm. Reproductive organs: Unremarkable. Bladder: Bladder wall thickness is normal, accounting for underdistention. No calcified bladder stone s. Pelvic lymph nodes: No adenopathy by size criteria. Bones: No aggressive osseous abnormality. Other: No significant ventral or inguinal hernia. IMPRESSION: Tiny punctate nonobstructing right renal stones. No evidence for right hydronephrosis or acute inflam matory changes. Colonic diverticulosis without acute diverticulitis. Moderate hiatal hernia. Other nonacute findings as above. Reviewed by: Gilbert Gilmore MD on 05/20/2024 5:53 PM PDT Approved by: Gilbert Gilmore MD on 05/20/2024 5:53 PM PDT Station ID: [id number]
[2024-05-20 18:22] VITALS: O2SAT 98
[2024-05-20 18:52] VITALS: BP 142/89
== END 2024-05-20 18:49 | disposition home or self-care (01) ==
LOC: ED 14:56
DX: N20.0 Calculus of kidney (principal); K57.30 Diverticulosis of large intestine without perforation or abscess without bleeding; K44.9 Diaphragmatic hernia without obstruction or gangrene; G47.30 Sleep apnea, unspecified; I10 Essential (primary) hypertension; E78.00 Pure hypercholesterolemia, unspecified; E11.9 Type 2 diabetes mellitus without complications; Z79.84 Long term (current) use of oral hypoglycemic drugs; Z79.85 Long-term (current) use of injectable non-insulin antidiabetic drugs; K21.9 Gastro-esophageal reflux disease without esophagitis
CPT/HCPCS: 36415; 80053; 81001; 81003; 83690; 85025; 87086; 99283; 99284

== ENCOUNTER 2024-07-04 16:32 | Emergency (ER) | payer OTHER ==
[2024-07-04 17:12] VITALS: O2SAT 100
--- NOTE | 2024-07-04 17:14 | ED Physician Documentation ---
PD HPI BACK PAIN - Stated complaint Stated Complaint: BACK PX - Chief complaint Chief Complaint: Back Pain - Additional information Additional information: 54-year-old male presents emergency department for left lower back pain. Patient says that this started about 2 weeks ago he has follow-up with his primary care provider where they gave him a physical therapy referral and given different stretches for sciatica pain they gave him a short course of muscle relaxers that he has a lot of and feels like the back pain is coming back. No incontinence of bowel or bladder no history of back surgeries no weakness in lower extremities able to ambulate without any difficulty no recent falls trauma or back injuries. PD PAST MEDICAL HISTORY - Past Medical History Cardiovascular: Hypertension, High cholesterol Respiratory: Sleep apnea, CPAP use Neuro: None Endocrine/Autoimmune: Type 2 diabetes GI: GERD : None HEENT: None Psych: None Musculoskeletal: Gout Derm: None - Past Surgical History Past Surgical History: Yes Ortho: ACL reconstruction - Present Medications Home Medications: Ambulatory Orders Medication Instructions Recorded Confirmed Metformin HCl 1,000 mg PO BID 06/06/15 05/20/24 Atorvastatin [Lipitor] 20 mg ORAL DAILY 11/09/18 05/20/24 Pantoprazole [Protonix] 40 mg PO DAILY 11/09/18 05/20/24 Dulaglutide [Trulicity] 1.5 mg SQ ONCE 06/12/21 05/20/24 Febuxostat 1 tab PO DAILY 05/20/24 05/20/24 Lisinopril [Zestril] 1 tab PO DAILY 05/20/24 05/20/24 NIFEdipine [Nifedipine ER] 1 tab PO DAILY 05/20/24 05/20/24 Cyclobenzaprine [Flexeril] 10 mg PO TID PRN 6 Days #20 tablet 07/04/24 - Allergies Allergies/Adverse Reactions: Allergies Allergy/AdvReac Type Severity Reaction Status Date / Time morphine AdvReac Itching Verified 07/04/24 17:09 - Social History Does the pt smoke?: No Smoking Status: Never smoker Does the pt drink ETOH?: No Does the pt have substance abuse?: No - Immunizations Immunizations are current?: Yes - POLST Patient has POLST: No PD ED PE NORMAL - Vitals Vital signs reviewed: Yes - General General: Alert and oriented X 3, No acute distress, Well developed/nourished - Back Back: No CVA TTP, No spinal TTP - Neuro Neuro: Alert and oriented X 3, lathe sander 2-12 intact, No motor deficit, No sensory deficit, Normal speech Eye Opening: Spontaneous Motor: Obeys Commands Verbal: Oriented GCS Score: 15 - Psych Psych: Normal mood - Free text exam Free text exam: Neck and back are without deformity, external skin changes, or signs of trauma. Curvature of the cervical, thoracic, and lumbar spine are within normal limits. Bony features of the shoulders and hips are of equal height bilaterally. Posture is upright, gait is smooth, steady, and within normal limits. No tenderness noted on palpation of the spinous processes. Spinous processes are midline. Cervical, thoracic, and lumbar paraspinal muscles are not tender and are without spasm. No discomfort is noted with flexion, extension, and [id number] rotation of the cervical spine, full range of motion is noted. Full range of motion including flexion, extension, and [id number] rotation of the thoracic and lumbar spine are noted and without discomfort. Straight leg raise test is Positive on the left side negative on the right side Sensation to the upper and lower extremities is normal bilaterally. No clonus is noted. [employer] strength is normal bilaterally. Dorsi/plantar flexion is normal bilaterally. Results - Vitals Vitals: Vital Signs - 24 hr // 17:09 Temperature 36.4 C L Heart Rate 75 Respiratory 16 Rate Blood Pressure 141/97 H O2 Saturation 100 Oxygen O2 Source Room air PD Medical Decision Making - ED course ED course: 54-year-old male presents emergency department for left lower back pain. Differential diagnoses includes lumbago versus musculoskeletal spasm / strain versus sciatica. Most likely sciatica as straight leg raise test was positive on left lower extremity. No back pain red flags on history or physical. Presentation not consistent with malignancy (lack of history of malignancy, lack of B symptoms), fracture (no trauma, no bony tenderness to palpation), cauda equina (no bowel or urinary incontinence/retention, no saddle anesthesia, no distal weakness), AAA, viscus perforation, osteomyelitis or epidural abscess (no IVDU, vertebral tenderness), renal colic, pyelonephritis (afebrile, no CVAT, no urinary symptoms). Given the clinical picture, no indication for imaging at this time. Pain was improved with 15 mg of Toradol injection we discussed possibly doing a steroid burst but given patient's type 2 diabetes and history of kidney failure we opted to just continue with muscle relaxers he was given a multitude of different sciatica stretches told to follow-up with primary care provider for ongoing referral to physical therapy consider acupuncture. Return precautions given all questions answered patient safe for discharge at this time patient is able to ambulate without any difficulty. Departure - Departure Disposition: Home, Self Care Clinical Impression: Sciatica of left side Instructions: ED Back Care Tips, ED Sciatica Prescriptions: Cyclobenzaprine [Flexeril] 10 mg PO TID PRN 6 Days #20 tablet PRN Reason: Spasms Comments: Thank you for trusting us with your care. We have given you a Toradol shot here in the emergency department and we are sending you home with some muscle relaxers. You can use these up to 3 times a day as needed make sure that you are not drinking or driving while taking his muscle relaxers. Continue with the sciatica stretches that we have given you I would also look up a improvement stretch for sciatica on YouTube that can be quite helpful. Continue with physical therapy and I would also consider looking into acupuncture for your sciatica. You can take 1000 mg of Tylenol every 8 hours as needed for pain and discomfort. Please follow-up with your primary care provider as needed please come back to the ER if you are having any incontinence of bowel or bladder, fevers or chills or any other concerning emergent symptoms.
[2024-07-04] MEDS: CYCLOBENZAPRINE 10 MG Prepack 2 PO PRN (18:05)
[2024-07-04] MEDS: KETOROLAC 15 MG/ML VIAL IM STA (18:05)
[2024-07-04 18:27] VITALS: BP 157/108
== END 2024-07-04 18:26 | disposition home or self-care (01) ==
LOC: ED 16:32
DX: M54.32 Sciatica, left side (principal); I10 Essential (primary) hypertension; E78.00 Pure hypercholesterolemia, unspecified; E11.9 Type 2 diabetes mellitus without complications; Z79.899 Other long term (current) drug therapy; Z79.85 Long-term (current) use of injectable non-insulin antidiabetic drugs; Z79.84 Long term (current) use of oral hypoglycemic drugs
CPT/HCPCS: 96372; 99283